=== PATIENT | female | born 1995 | race Caucasian/White ===

== ENCOUNTER 2020-02-23 08:05 | Emergency (ER) | payer SELFPAY ==
[2020-02-23 08:07] VITALS: BP 104/68; PULSE 117; RESP 18; TEMP 37; O2SAT 99; BMI 23.9
--- NOTE | 2020-02-23 08:21 | W.ED.URI ---
HPI - URI/Sore Throat General: Chief Complaint: Upper Respiratory Infection Stated Complaint: SORE THROAT / FEVER Time Seen by Provider: 02/23/20 08:21 Source: patient Mode of arrival: EMS Limitations: no limitations History of Present Illness: HPI Narrative: Patient presents with 3-day history of sore throat, nasal drainage.States she possibly could have been running a fever but had no thermometer at home has taken no medications this morning, and is afebrile at presentation. MD elicited complaint: sore throat and nasal congestion Onset (ago): day(s) Consistency: progressively worsening Severity: mild Description of mucous: green Able to tolerate fluids by mouth: Yes Exacerbating factors: nothing Relieving factors: nothing Context: sick contacts Associated symptoms: Reports no associated symptoms, fever(s), nasal congestion and sinus pain; Deny abdominal pain or chest pain Treatments prior to arrival: none Review of Systems General: Reports: 10 or more systems reviewed and unremarkable except in HPI and below Const: Reports: fever(s) ENMT: Reports: throat pain, nasal discharge, nasal congestion, post nasal drip and sinus pain Card: Denies: chest pain or palpitations Resp: Denies: dyspnea or productive cough GI: Denies: abdominal pain : Denies: flank pain or difficulty voiding Physical Exam Const: COMMON NORMALS: no acute distress, average body habitus and patient oriented x3 HENMT: COMMON NORMALS: normocephalic, atraumatic and Normal external nose present HEAD & SCALP: normocephalic and atraumatic FACE & SINUS: face symmetric, normal transillumination of sinuses and sinus tenderness NOSE: Normal external nose present, Normal nares present, Abnormal mucous membranes and turbinates present erythematous and Nasal discharge present clear MOUTH: Normal oral and palatal mucosa present THROAT: postnasal drainage and tonsils absent Eye: COMMON NORMALS: Equal, round and reactive pupils present GENERAL EYE: appearance normal, both eyes and all related structures PUPIL: Yes Equal, round and reactive pupils present Neck/C-Spine: COMMON NORMALS: full ROM and no lymphadenopathy GENERAL: Yes normal visual inspection Lymph: LYMPHATIC: no lymphadenopathy noted Chest: COMMONS NORMALS: normal inspection of the chest and normal palpation of entire chest wall Resp: COMMON NORMALS: normal respiratory effort, No retractions and No use of accessory muscles Cardio: COMMON NORMALS: regular rhythm, S1 normal heart sound present and S2 normal heart sound present RHYTHM: regular rhythm HEART SOUNDS: S1 normal heart sound present and S2 normal heart sound present GI: COMMON NORMALS: Normal to inspection, nondistended, normoactive bowel sounds present, Soft to palpation, non-tender, No hepatosplenomegaly present, no masses and no bruits PALPATION: Yes Soft to palpation and Yes No hepatosplenomegaly present Extremity: COMMON NORMALS: normal to inspection and full ROM Neuro: COMMON NORMALS: patient oriented x3 Skin: COMMON NORMALS: no rashes or lesions noted, no wounds and turgor normal GENERAL SKIN EXAM: no rashes or lesions noted and turgor normal Course Vital Signs: Vital signs: Vital Signs Temperature 98.6 F 02/23/20 08:07 Pulse Rate 117 H 02/23/20 08:07 Respiratory Rate 18 02/23/20 08:07 Blood Pressure 104/68 02/23/20 08:07 Pulse Oximetry 99 02/23/20 08:07 Discharge Plan Discharge Patient Disposition: Home, Self-Care Clinical Impression: Sinusitis Condition: Stable Prescriptions: New fluticasone propionate [Flonase Allergy Relief] 50 mcg/actuation spray,suspension 1 spray INTRANASAL DAILY Qty: 16 RF: 0 loratadine [Claritin] 10 mg tablet 10 mg PO DAILY Qty: 30 RF: 0 azithromycin 250 mg tablet See Rx Instructions .ROUTE .COMPLEX Qty: 6 RF: 0 Discharge Orders: Discharge Order (Routine); Ordered 02/23/20 Ordered By: Elaine Martinez Referrals: Sesar Woodard MD [Primary Care Provider] - 1-3 days Discharge Diet: Usual diet Discharge Activity: Resume usual activity Coding Level of Care Code ED Specification Writer for Smith Bragg
[2020-02-23 08:55] VITALS: BP 99/54; PULSE 128; RESP 18; O2SAT 100
[2020-02-23 09:42] LABS: Rapid Strep A Test Positive (Negative)
[2020-02-23 09:54] LABS: Influenza A by IFA Negative (Negative); Influenza B by IFA Negative (Negative)
== END 2020-02-23 08:57 | disposition home or self-care (01) ==
LOC: ER 08:40
PROVIDERS: Emergency Provider Nurse Practitioner Family; Family Provider Family Medicine; PCP Family Medicine
DX: J32.9 Chronic sinusitis, unspecified (principal)
CPT/HCPCS: 12345; 87804; 87880; 99282

== ENCOUNTER → 2020-07-29 12:13 | Outpatient (BNVA) | payer OTHER, SELFPAY | PROVIDERS: Family Provider Family Medicine; PCP Family Medicine; Visit Provider Nurse Practitioner Family | DX: Z20.828 Contact with and (suspected) exposure to other viral communicable diseases (principal) | CPT/HCPCS: 87635 ==

== ENCOUNTER 2020-07-31 15:42 | Emergency (ER) | payer SELFPAY ==
[2020-07-31 16:13] VITALS: BP 101/71; PULSE 95; RESP 14; TEMP 36.7; O2SAT 99; BMI 23.0
[2020-07-31 16:18] VITALS: BP 115/75; PULSE 80; RESP 16; O2SAT 98
[2020-07-31 16:51] VITALS: O2SAT 96
--- NOTE | 2020-07-31 17:21 | XRR_ITS ---
PROCEDURE INFORMATION: Exam: XR Chest, 1 View Exam date and time: 07/31/2020 5:28 PM Age: 25 years old Clinical indication: Shortness of breath; Additional info: SOB, cough, covid+ TECHNIQUE: Imaging protocol: XR of the chest Views: 1 view. COMPARISON: No relevant prior studies available. FINDINGS: Lungs: Unremarkable. No consolidation. Pleural space: Unremarkable. No pleural effusion. No pneumothorax. Heart/Mediastinum: Unremarkable. No cardiomegaly. Bones/joints: Unremarkable. XR/XR chest 1V portable [id number] IMPRESSION: No acute findings.
--- NOTE | 2020-07-31 17:23 | ECG_ITS ---
[facility] Test Date: 2020-07-31 Pat Name: Kimberly Abdalla Department: Room: Gender: Female Spot Checker: : 1995 Requested By: Adair Rivera I Order Number: [id number] Amaury MD: Chris Boateng M.D. Measurements Intervals [place] Rate: 75 P: 58 MI: 163 QRS: 64 QRSD: 79 T: 55 QT: 383 QTc: 430 Interpretive Statements SINUS RHYTHM WITH SINUS ARRHYTHMIA LOW QRS VOLTAGE IN PRECORDIAL LEADS [QRS DEFLECTION < 1.0 mV IN CHEST LEADS] SEPTAL MYOCARDIAL INFARCTION , PROBABLY OLD [40+ ms Q WAVE IN V1/V2] No previous ECG available for comparison Electronically Signed On 07-31-2020 18:37:37 DEFECT CUTTER by Chris Boateng M.D. [id number]
[2020-07-31 17:48] VITALS: BP 113/68; PULSE 74; RESP 16; O2SAT 98
--- NOTE | 2020-07-31 18:07 | W.ED.COVID ---
HPI - COVID General: Chief Complaint: COVID symptoms Stated Complaint: chest pain. covid + Time Seen by Provider: 07/31/20 16:36 Source: patient Mode of arrival: ambulatory Limitations: no limitations Triage information: No fever, cough or shortness of breath. Exposure to COVID + person last 14 days History of Present Illness: HPI Narrative: The patient is a 25year old female with no significant past medical history presents to the ED with complaints of chest pain of 5 days duration. She got tested on the same day the pain started and she tested positive for COVID 19. She has mild SOB. Chest pain is worse on leaning forward. MD complaint: known COVID positive Prior covid testing: yes, results known COVID 19 common symptoms: positive dyspnea; negative fever(s), chills, cough, non-productive cough, productive cough, fatigue, body aches, headache(s), loss of sense of smell and/or taste, throat pain, nasal congestion, nausea, vomiting or diarrhea COVID 19 other sytmptoms: positive chest pain; negative chest pressure, pleuritic pain, requiring oxygen, requiring more oxygen, respiratory distress, cyanosis, lethargy, confusion, new neurological complaints or other concerning symptoms Onset (ago): day(s) (5) Severity: mild Treatment prior to arrival: none COVID Results: SARS-CoV-2 RNA (RT-PCR) Detected (NOT DETECTED) A 07/29/20 12:13 07/29/20 Review of Systems General: Reports: 10 or more systems reviewed and unremarkable except in HPI and below Const: Denies: fever(s), chills, body aches or fatigue Eyes: Denies: change in vision or blurry vision ENMT: Denies: throat pain or nasal congestion Card: Reports: chest pain Resp: Reports: dyspnea; Denies: productive cough or non-productive cough GI: Denies: nausea, vomiting or diarrhea : Denies: flank pain, difficulty voiding, dysuria, urinary frequency, urinary urgency or urinary hesitancy Musc: Denies: neck pain, back pain or extremity swelling Skin/Breast: Denies: rash, pruritus or erythema Neuro: Denies: headache(s) or confusion Endo: Denies: polyuria, polydipsia or tired all the time PFS ED PFSH: Social History Smoking and tobacco status: current every day smoker cigarettes Packs smoked per day: 0.5 Alcohol intake: never Physical Exam Const: COMMON NORMALS: no acute distress, average body habitus, patient oriented x3, no limitations, healthy appearing, alert and well nourished Neck/C-Spine: COMMON NORMALS: no meningeal signs and no JVD Chest: COMMONS NORMALS: normal inspection of the chest CHEST: Yes tenderness Resp: COMMON NORMALS: normal respiratory effort, No retractions, No use of accessory muscles, clear to auscultation bilaterally and percussion normal AUSCULTATION: clear to auscultation bilaterally PERCUSSION: percussion normal Cardio: COMMON NORMALS: no JVD, regular rate, regular rhythm, S1 normal heart sound present, S2 normal heart sound present, No gallops present (Cardio), No clicks present (Cardio), No murmurs present (Cardio), No rub (Cardio) and Peripheral pulses 2+ throughout RATE: regular rate RHYTHM: regular rhythm HEART SOUNDS: S1 normal heart sound present and S2 normal heart sound present PERIPHERAL PULSES: Peripheral pulses 2+ throughout GI: COMMON NORMALS: Normal to inspection, nondistended, normoactive bowel sounds present, Soft to palpation, non-tender, No hepatosplenomegaly present, no masses and no bruits PALPATION: Yes Soft to palpation and Yes No hepatosplenomegaly present Extremity: COMMON NORMALS: normal to inspection, full ROM, capillary refill normal, no calf tenderness and no pedal edema Neuro: COMMON NORMALS: patient oriented x3 SENSORIUM/ORIENTATION: Yes alert MENINGEAL SIGNS: Yes no meningeal signs Skin: COMMON NORMALS: no rashes or lesions noted, no wounds, turgor normal, no jaundice, no petechiae and no mottling GENERAL SKIN EXAM: no rashes or lesions noted and turgor normal Course Reevaluation(s): Reevaluation #1: Discussed her lab and imaging findings with her. D-dimer negative, high-sensitivity troponin negative. Chest x-ray unremarkable. Since she is tender to palpation I believe she may be having some costochondritis and she is advised to take NSAIDs. She voiced understanding and is in agreement with the plan. Time: 18:58 Vital Signs: Vital signs: Vital Signs Temperature 98.0 F 12/18/20 16:13 Pulse Rate 85 07/31/20 19:13 Respiratory Rate 18 07/31/20 18:48 Blood Pressure 120/80 07/31/20 19:13 Pulse Oximetry 100 07/31/20 19:13 MDM - COVID MDM Narrative: Medical decision making narrative: 25-year-old female who recently tested positive for COVID-19 and has been having chest pain for several days. Evaluation in the ED is unremarkable for any acute cause for her chest pain including negative D-dimer negative high-sensitivity troponin. Symptoms are most likely due to costochondritis and she is discharged home with a prescription for NSAIDs. Medical Records: Attestation: I reviewed the patient's medical records. Lab Data: Attestation: I reviewed the patient's lab results. Labs: Lab Results 07/31/20 07/31/20 07/31/20 Range/Units 18:00 18:00 18:00 WBC 10.0 (4.0-10.0) 10^3/ uL RBC 5.06 (4.1-5.3) 10^6/u L Hgb 14.6 (11.5-15.3) g/dL Hct 44.7 (37.0-47.0) % MCV 88.3 (81-99) fL MCH 28.9 (28.0-34.0) pg MCHC 32.7 (30.0-36.0) g/dL RDW 13.2 (12.1-15.1) % Plt Count 257 (130-400) 10^3/c mm MPV 10.9 H (7.4-10.4) fL Neut % (Auto) 30.4 % Lymph % (Auto) 60.1 % [place] % (Auto) 5.5 % Eos % (Auto) 3.3 % Baso % (Auto) 0.5 % Neut # (Auto) 3.04 (1.8-7.7) 10^3/u L Lymph # (Auto) 6.0 H (0.8-4.8) 10^3/u L [place] # (Auto) 0.6 (0.2-0.9) 10^3/u L Eos # (Auto) 0.3 (0.0-0.8) 10^3/u L Baso # (Auto) 0.1 (0.0-0.1) 10^3/u L Nucleated RBC % (a uto) 0 % Nucleated RBCs # 0.0 /100WBC D-Dimer 0.31 (0-0.59) ug/mIFE U Sodium 138 (136-145) mmol/L Potassium 4.4 (3.5-5.1) mmol/L Chloride 104 (98-107) mmol/L Carbon Dioxide 26 (22-29) mmol/L Anion Gap 12.4 (5-19) BUN 11 (6-20) mg/dL Creatinine 0.5 (0.5-0.9) mg/dL GFR Calculation 148.0 H (90-130) mL/min Glucose 94 (65-115) mg/dL Calculated Osmolal ity 285 (285-295) mOsm/k g Calcium 9.7 (8.5-10.5) mg/dL Total Bilirubin 0.2 (0.15-1.2) mg/dL AST 16 (0-32) U/L ALT 21 (0-33) U/L Alkaline Phosphata se 93 (35-105) IU/L Creatine Kinase 90 (26-192) U/L Troponin T Baselin e (0-10) ng/L C-Reactive Protein 1.5 (0.0-4.9) mg/L Total Protein 7.0 (6.6-8.7) g/dL Albumin 4.3 (3.5-5.2) g/dL Globulin 2.7 (1.3-4.6) g/dL 12/18/20 Range/Units 18:00 WBC (4.0-10.0) 10^3/ uL RBC (4.1-5.3) 10^6/u L Hgb (11.5-15.3) g/dL Hct (37.0-47.0) % MCV (81-99) fL MCH (28.0-34.0) pg MCHC (30.0-36.0) g/dL RDW (12.1-15.1) % Plt Count (130-400) 10^3/c mm MPV (7.4-10.4) fL Neut % (Auto) % Lymph % (Auto) % [place] % (Auto) % Eos % (Auto) % Baso % (Auto) % Neut # (Auto) (1.8-7.7) 10^3/u L Lymph # (Auto) (0.8-4.8) 10^3/u L [place] # (Auto) (0.2-0.9) 10^3/u L Eos # (Auto) (0.0-0.8) 10^3/u L Baso # (Auto) (0.0-0.1) 10^3/u L Nucleated RBC % (a uto) % Nucleated RBCs # /100WBC D-Dimer (0-0.59) ug/mIFE U Sodium (136-145) mmol/L Potassium (3.5-5.1) mmol/L Chloride (98-107) mmol/L Carbon Dioxide (22-29) mmol/L Anion Gap (5-19) BUN (6-20) mg/dL Creatinine (0.5-0.9) mg/dL GFR Calculation (90-130) mL/min Glucose (65-115) mg/dL Calculated Osmolal ity (285-295) mOsm/k g Calcium (8.5-10.5) mg/dL Total Bilirubin (0.15-1.2) mg/dL AST (0-32) U/L ALT (0-33) U/L Alkaline Phosphata se (35-105) IU/L Creatine Kinase (26-192) U/L Troponin T Baselin e 6 (0-10) ng/L C-Reactive Protein (0.0-4.9) mg/L Total Protein (6.6-8.7) g/dL Albumin (3.5-5.2) g/dL Globulin (1.3-4.6) g/dL Imaging Data: CXR: Attestation: I personally reviewed and interpreted this imaging study as follows: Radiologist's impression: [address] [address] XRay Report Signed Patient: Kimberly Abdalla #: [id number] : 1995Acct#:[id number] Age/Sex: 25 / FADM Date: 07/31/20 Loc: ERRoom/Bed: Attending Dr: Ordering Provider/Ordering MD: Adair Rivera MD, [facility] Date of Service: 07/31/20 Procedure(s): XR chest 1V portable [id number] Accession Number(s): [id number] Report Number: [id number] PROCEDURE INFORMATION: Exam: XR Chest, 1 View Exam date and time: 07/31/2020 5:28 PM Age: 25 years old Clinical indication: Shortness of breath; Additional info: SOB, cough, covid+ TECHNIQUE: Imaging protocol: XR of the chest Views: 1 view. COMPARISON: No relevant prior studies available. FINDINGS: Lungs: Unremarkable. No consolidation. Pleural space: Unremarkable. No pleural effusion. No pneumothorax. Heart/Mediastinum: Unremarkable. No cardiomegaly. Bones/joints: Unremarkable. XR/XR chest 1V portable [id number] IMPRESSION: No acute findings. Dictated By:Carmelo Isabel Signed By:Carmelo IsabelSimacho Date/Time:07/31/201808 DD/ 07 EKG Data: EKG 1: Attestation: I personally reviewed and interpreted this EKG as follows: EKG interpretation date: 07/31/20 EKG interpretation time: 18:13 Prior EKG tracings: not available for review Interpretation: sinus rhythm with sinus arrhythmia. Heart rate [address] changes. Normal axis COVID Results: SARS-CoV-2 RNA (RT-PCR) Detected (NOT DETECTED) A 07/29/20 12:13 07/29/20 Monoclonal Antibody Treatments Inclusion/Exclusion Criteria weight >/= 40 kg and + direct Sars-Cov-2 test less than 7-10 days ago age not >/= 65, BMI not >/= 35, does not have diabetes, does not have CKD, not receiving immunosuppressive therapy, does not have immunosuppressive disease, not >/= 55 with hypertension, not >/= 55 with diabetes, not >/= 55 with COPD/lung disease, not 12-17y with BMI >/= 85th percentile, not 12-17y with heart disease, not 12-17y with sickle cell disease, not 12-17y with neurodevelopemental d/o, not 12-17y with asthma/RAD/lung disease and not 12-17y w/ 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 not requiring hospitalization, not requiring oxygen (if not chronically on oxygen) and no increase oxygen requirement (if chronically on oxygen) Patient education fact sheet not given, did not discuss EUA/unapproved drug, did not discuss alternatives, did not discuss risks and benefits, no opportunity for questions and patient does not consent (DO NOT GIVE) Plan for treatment Does not meet criteria (DO NOT GIVE) Discharge Plan Discharge Patient Disposition: Home Clinical Impression: Acute costochondritis, COVID-19 Condition: Stable Prescriptions: New ibuprofen 800 mg tablet 800 mg PO Q8H PRN (Reason: pain) Qty: 30 RF: 0 Discharge Orders: Discharge ED (Routine); Ordered 07/31/20 Ordered By: Adair Rivera Referrals: Sesar Woodard MD [Primary Care Provider] - 1-3 days Discharge Diet: Usual diet Discharge Activity: Resume usual activity Patient Instructions: Costochondritis (ED), Viral Syndrome (ED) Activity Restrictions/Additional Instructions: Return for any new or worsening symptoms. Take the ibuprofen as needed for pain. Follow-up with your primary care provider within 3 days. You need to self isolate for at least 10 days and at least 2 days without fever. Coding Level of Care Code ED Metal Fabricator Welder for Smith Fwd Exam Comprehensive
[2020-07-31 18:12] LABS: Basophils # 0.1 10^3/uL (0.0-0.1); Basophils % 0.5 %; Eosinophils # 0.3 10^3/uL (0.0-0.8); Eosinophils % 3.3 %; Hematocrit 44.7 % (37.0-47.0); Hemoglobin 14.6 g/dL (11.5-15.3); Lymphocytes % 60.1 %; Mean Corpuscular HGB Conc 32.7 g/dL (30.0-36.0); Mean Corpuscular Hemoglobin 28.9 pg (28.0-34.0); Mean Corpuscular Volume 88.3 fL (81-99); Mean Platelet Volume 10.9 fL (7.4-10.4); Monocytes # 0.6 10^3/uL (0.2-0.9); Monocytes % 5.5 %; Neutrophils # 3.04 10^3/uL (1.8-7.7); Neutrophils % 30.4 %; Nucleated Red Blood Cells % 0 %; Platelet Count 257 10^3/cmm (130-400); Red Blood Count 5.06 10^6/uL (4.1-5.3); Red Cell Distribution Width 13.2 % (12.1-15.1)
[2020-07-31 18:29] LABS: D Dimer 0.31 ug/mIFEU (0-0.59)
[2020-07-31 18:35] LABS: Alanine Aminotransferase 21 U/L (0-33); Albumin Level 4.3 g/dL (3.5-5.2); Alkaline Phosphatase 93 IU/L (35-105); Blood Urea Nitrogen 11 mg/dL (6-20); C Reactive Protein 1.5 mg/L (0.0-4.9); Calcium 9.7 mg/dL (8.5-10.5); Carbon Dioxide 26 mmol/L (22-29); Chloride 104 mmol/L (98-107); Creatine Phosphokinase 90 U/L (26-192); Globulin 2.7 g/dL (1.3-4.6); Glucose 94 mg/dL (65-115); Osmolality Calculated 285 mOsm/kg (285-295); Sodium 138 mmol/L (136-145); Total Bilirubin 0.2 mg/dL (0.15-1.2)
[2020-07-31 18:36] LABS: Anion Gap 12.4 (5-19); Aspartate Amino Transferase 16 U/L (0-32); Potassium 4.4 mmol/L (3.5-5.1); Troponin(5th) Baseline 6 ng/L (0-10)
[2020-07-31 18:48] VITALS: BP 120/80; PULSE 75; RESP 18; O2SAT 99
[2020-07-31 18:50] LABS: Slide Review Slide Review Perform
[2020-07-31] MEDS: ketorolac 30 mg/mL INJ IVP (19:08)
[2020-07-31 19:13] VITALS: BP 120/80; PULSE 85; O2SAT 100
== END 2020-07-31 19:15 | disposition home or self-care (01) ==
PROVIDERS: Emergency Provider Family Medicine; PCP Family Medicine
DX: U07.1 COVID-19 (principal); M94.0 Chondrocostal junction syndrome [Tietze]; F17.210 Nicotine dependence, cigarettes, uncomplicated
CPT/HCPCS: 12345; 71045; 80053; 82550; 84484; 85025; 85378; 86140; 93005; 96374; 99283; J1885

== ENCOUNTER 2020-09-28 16:55 | Emergency (ER) | payer SELFPAY ==
[2020-09-28 17:01] VITALS: BP 105/70; PULSE 91; RESP 16; TEMP 36.5; BMI 23.0
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
[2020-09-28 17:53] LABS: Basophils # 0.1 10^3/uL (0.0-0.1); Basophils % 0.6 %; Eosinophils # 0.2 10^3/uL (0.0-0.8); Eosinophils % 1.8 %; Hematocrit 44.8 % (37.0-47.0); Hemoglobin 14.6 g/dL (11.5-15.3); Lymphocytes # 4.8 10^3/uL (0.8-4.8); Lymphocytes % 39.7 %; Mean Corpuscular HGB Conc 32.6 g/dL (30.0-36.0); Mean Corpuscular Volume 88.9 fL (81-99); Mean Platelet Volume 11.1 fL (7.4-10.4); Monocytes # 0.6 10^3/uL (0.2-0.9); Monocytes % 5.3 %; Neutrophils % 51.8 %; Nucleated Red Blood Cells % 0 %; Platelet Count 301 10^3/cmm (130-400); Red Blood Count 5.04 10^6/uL (4.1-5.3); Red Cell Distribution Width 14.1 % (12.1-15.1)
[2020-09-28 17:56] LABS: HCG, Serum Qual Negative (Negative)
[2020-09-28 18:06] LABS: Alanine Aminotransferase 27 U/L (0-33); Albumin Level 4.4 g/dL (3.5-5.2); Alkaline Phosphatase 86 IU/L (35-105); Anion Gap 13.8 (5-19); Aspartate Amino Transferase 25 U/L (0-32); Blood Urea Nitrogen 14 mg/dL (6-20); Carbon Dioxide 24 mmol/L (22-29); Chloride 104 mmol/L (98-107); Creatinine Clr Calc Pharmacy 91.7591; Glucose 123 mg/dL (65-115); Osmolality Calculated 288 mOsm/kg (285-295); Potassium 3.8 mmol/L (3.5-5.1); Sodium 138 mmol/L (136-145); Total Bilirubin 0.2 mg/dL (0.15-1.2); Total Protein 7.4 g/dL (6.6-8.7)
[2020-09-28 18:08] LABS: Alcohol Level < 10 mg/dL (0-10)
[2020-09-28] MEDS: ondansetron 2 mg/ML SDV 2 mL 4 MG IVP (18:31)
[2020-09-28 18:40] VITALS: RESP 18; O2SAT 100
[2020-09-28] MEDS: morphine 4 mg/mL SDV 1 mL IVP (18:40)
[2020-09-28 19:07] LABS: Add Urine Microscopic? YES; Bilirubin Urine Neg (Negative); Blood Urine 2+ (Negative); Glucose Urine UA Norm (Normal); Ketones Urine Negative (Negative); Leukocyte Esterase Urine Negative (Negative); Nitrate Urine Negative (Negative); Protein Urine Neg (Negative); Specific Gravity, Urine 1.025 (1.005-1.030); Urine Appearance Clear (CLEAR); Urine Color Yellow (Yellow); Urobilinogen Urine Norm (Negative); pH Urine 6 (5-7)
[2020-09-28 19:15] LABS: Amphetamines Screen Urine Positive (Negative); Barbiturates Screen Urine Negative (Negative); Benzodiazepines Screen Urine Negative (Negative); Cocaine Screen Urine Negative (Negative); Mucus Urine 3+ /hpf; Opiate Screen Urine Negative (Negative); PCP Screen Urine Negative (Negative); THC Screen Urine Negative (Negative)
[2020-09-28 19:17] LABS: Add Urine Culture? No; Bacteria Urine 1+ /hpf; RBC Urine 0-4 /hpf (0-2); Squamous Epithelial Cell Urine 0-4 /hpf (0-5); WBC Urine 0-4 /hpf (0-5)
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
[2020-09-28 20:28] VITALS: BP 105/70; PULSE 97; RESP 18; O2SAT 100
--- NOTE | 2020-09-29 11:52 | DCPLANNER ---
manager utilization review received message to schedule appointment with ENT. manager utilization review emailed Wilfredo. They will reviewed and contact patient with appointment information.
--- NOTE | 2020-10-12 15:39 | DCPLANNER ---
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 Email stated that clinic has made multiple attempts to reach patient, unable to reach patient. A letter was sent to patient stating that if patient wanted a follow up appointment, to call the clinic and an appointment would be scheduled. Original Note: bowling alley manager sent an email to both Diana and Norma at [facility] General Surgery to confirm if an appointment had been scheduled for patient.
== END 2020-09-28 20:10 | disposition home or self-care (01) ==
PROVIDERS: Emergency Provider Family Medicine; PCP Family Medicine
DX: S20.219A Contusion of unspecified front wall of thorax, initial encounter (principal); S02.2XXA Fracture of nasal bones, initial encounter for closed fracture; F17.210 Nicotine dependence, cigarettes, uncomplicated; V89.2XXA Person injured in unspecified motor-vehicle accident, traffic, initial encounter
CPT/HCPCS: 36415; 70450; 71250; 72125; 74176; 80053; 80306; 80307; 81001; 84703; 85025; 86850; 86900; 96374; 96375; 99283; J2270; J2405

== ENCOUNTER 2020-12-01 11:05 | Emergency (ER) | payer SELFPAY ==
[2020-12-01 11:06] VITALS: BP 107/75; PULSE 88; RESP 17; TEMP 36.3; O2SAT 97; BMI 23.9
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
[2020-12-01 12:04] VITALS: BP 112/84; PULSE 104; RESP 16; O2SAT 98
[2020-12-01] MEDS: ketorolac 60 mg/2 mL INJ IM (12:07)
[2020-12-01] MEDS: clindamycin 150 mg Capsule 300 MG PO (12:08)
== END 2020-12-01 12:33 | disposition home or self-care (01) ==
PROVIDERS: Emergency Provider Physician Assistant; PCP Family Medicine
DX: L03.116 Cellulitis of left lower limb (principal); M79.671 Pain in right foot; F17.210 Nicotine dependence, cigarettes, uncomplicated
CPT/HCPCS: 73630; 96372; 99283; J1885

== ENCOUNTER 2021-05-07 09:21 | Outpatient (CLI) | payer SELFPAY ==
--- NOTE | 2021-05-07 09:34 | XR_ITS ---
WS: [id number] Lateral views of cervical spine in the flexion, extension and neutral positions. 05/07/2021 Clinical Data: CERVICAIGIA Comparison: Cervical spine lateral, 08/03/2009. Findings: The disc heights are normal. There is no prevertebral swelling. On flexion and extension there is no limitation of motion or subluxation. XR/XR cervical spine fl/ex [id number] Impression: Negative for limitation of motion or subluxation on flexion or extension.
== END 2021-05-07 09:22 | disposition home or self-care (01) ==
PROVIDERS: PCP Family Medicine; Visit Provider Nurse Practitioner
DX: M54.2 Cervicalgia (principal)
CPT/HCPCS: 72040

== ENCOUNTER 2022-05-22 16:06 | Emergency (ER) | payer BC, MEDICAID, SELFPAY ==
[2022-05-22 16:15] VITALS: BP 103/62; PULSE 110; RESP 18; TEMP 36.7; O2SAT 98; BMI 25.3
--- NOTE | 2022-05-22 17:04 | PC.NURSE ---
pt reports she thinks she is , had 2 positive tests 2 days ago. c/o having vaginal bleeding, a mixture of bright and dark red. bleeding began last night, has gone though 1-2 pads since then. hx of tubal in December of this year. reports chest pain, back pain, and pain to right leg that began on Monday05/10/22. denies receiving rhogam injection with previous pregnancies. LMP began 05/10/22. denies vomiting or urinary symptoms.
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
--- NOTE | 2022-05-22 17:18 | W.ED.GENADLT ---
Documented by User: Sp Shetty DO 05/22/22 17:43 HPI - General Adult General: Chief complaint: Vaginal Bleeding Stated complaint: Thinks she might be /bleeding Time Seen by Provider: 05/22/22 17:00 History of Present Illness: Patient is a 27-year-old female presenting today with vaginal bleeding. P she notes that she had a positive test on Monday. Started to have vaginal bleeding today. Has a history of tubal earlier this year. Notes that she has never received RhoGAM shots. But does not know what her blood type is. She notes bleeding is consistent with associated cramping. No passage of large clots. No dysuria or polyuria. No nausea or vomiting. No diarrhea. No confirmatory ultrasound at this point. Review of Systems General: Reports: 10 or more systems reviewed and unremarkable except in HPI and below PFSH ED PFSH: Social History Smoking and tobacco status: current every day smoker cigarettes Packs smoked per day: 0.5 Alcohol intake: never Female Reproductive History: Date of last menstrual period: 05/10/22 Physical Exam Const: COMMON NORMALS: no acute distress, patient oriented x3 and alert GENERAL APPEARANCE: cooperative ORIENTATION/CONSCIOUSNESS: Yes awake, Yes oriented to person, Yes oriented to place and Yes oriented to time HENMT: COMMON NORMALS: normocephalic, atraumatic, external ears normal, Normal external nose present and moist oral mucous membranes HEAD & SCALP: normal to inspection, normocephalic and atraumatic NOSE: Normal external nose present GENERAL EAR: hearing grossly impaired EXTERNAL EAR: Yes external ears normal Eye: COMMON NORMALS: Equal, round and reactive pupils present, EOMs intact bilaterally, conjunctivae normal and no scleral icterus GENERAL EYE: appearance normal, both eyes and all related structures EYELID: eyelids normal CONJUNCTIVA: Yes conjunctivae normal SCLERA: sclerae normal PUPIL: Yes Equal, round and reactive pupils present Neck/C-Spine: COMMON NORMALS: full ROM, supple and no JVD GENERAL: Yes normal visual inspection Lymph: LYMPHATIC: no lymphadenopathy noted and no lymphedema noted Chest: COMMONS NORMALS: normal inspection of the chest Resp: COMMON NORMALS: normal respiratory effort, No retractions and No use of accessory muscles Cardio: COMMON NORMALS: no JVD, regular rate and regular rhythm RATE: regular rate RHYTHM: regular rhythm GI: COMMON NORMALS: Normal to inspection, nondistended, normoactive bowel sounds present : COMMON NORMALS: Yes no CVA tenderness BLADDER/KIDNEY EXAM: Yes no CVA tenderness Back/Pelvis: COMMON NORMALS: no CVA tenderness and thoracic and lumbar spine normal to inspection Extremity: COMMON NORMALS: normal to inspection, full ROM and capillary refill normal GENERAL: Yes normal exam except as noted Neuro: COMMON NORMALS: patient oriented x3, CN's II-XII intact bilaterally, moves all extremities, no focal motor deficits, no sensory deficits noted and gait normal SENSORIUM/ORIENTATION: Yes alert, Yes oriented to person, Yes oriented to place and Yes oriented to time Psych: COMMON NORMALS: mental status grossly normal, Normal thought process present, cooperative and normal affect THOUGHT PROCESS: Normal thought process present Skin: COMMON NORMALS: no rashes or lesions noted and no wounds GENERAL SKIN EXAM: no rashes or lesions noted Course Vital Signs: Vital signs: Vital Signs Temperature 98.0 F 05/22/22 16:15 Pulse Rate 93 05/22/22 18:30 Respiratory Rate 18 05/22/22 16:15 Blood Pressure 107/75 05/22/22 18:30 Pulse Oximetry 99 05/22/22 18:30 Oxygen Delivery Me thod 05/22/22 16:15 [facility] - General Adult Medical Decision Making 27-year-old female presenting today with vaginal bleeding. Patient signed out pending labs and ultrasound results. Lab Data : 05/22/22 16:17 05/22/22 16:17 Radiology Impressions Obstetrics Ultrasound 05/22/22 17:11 IMPRESSION: Normal duplex of the ovaries. No evidence of ovarian torsion. IMPRESSION: 1. No evidence of intrauterine gestational sac. 2. Trace amount of cul-de-sac free fluid. 3. Heterogeneous mass adjacent to RIGHT ovary. See discussion above. Findings may represent right adnexal region ectopic however no definite ectopic gestational sac or cardiac activity are identified. Continued correlation with quantitative beta HCG and follow-up should be obtained if there is no intervention at this time provided initial quantitative HCG level is quite low. Sonographic follow-up may also be considered. 4. No evidence of ovarian torsion. ADDENDUM: 05/22/[address] Leung was notified by phone at 8:31 p.m. Eastern time. Laboratory Results WBC 11.2 10^3/uL (4.0-10.0) H 05/22/22 16:17 RBC 4.54 10^6/uL (4.1-5.3) 05/22/22 16:17 Hgb 13.7 g/dL (11.5-15.3) 05/22/22 16:17 Hct 41.5 % (37.0-47.0) 05/22/22 16:17 MCV 91.4 fl (81-99) 05/22/22 16:17 MCH 30.2 pg (28.0-34.0) 05/22/22 16:17 MCHC 33.0 g/dL (30.0-36.0) 05/22/22 16:17 RDW 15.0 % (12.1-15.1) 05/22/22 16:17 Plt Count 278 10^3/cmm (130-400) 05/22/22 16:17 MPV 10.8 fL (7.4-10.4) H 05/22/22 16:17 Neut % (Auto) 53.0 % 05/22/22 16:17 Lymph % (Auto) 36.9 % 05/22/22 16:17 Gaston % (Auto) 6.2 % 05/22/22 16:17 Eos % (Auto) 3.0 % 05/22/22 16:17 Baso % (Auto) 0.6 % 05/22/22 16:17 Neut # (Auto) 5.92 10^3/uL (1.8-7.7) 05/22/22 16:17 Lymph # (Auto) 4.1 10^3/uL (0.8-4.8) 05/22/22 16:17 Gaston # (Auto) 0.7 10^3/uL (0.2-0.9) 05/22/22 16:17 Eos # (Auto) 0.3 10^3/uL (0.0-0.8) 05/22/22 16:17 Baso # (Auto) 0.1 10^3/uL (0.0-0.1) 05/22/22 16:17 Nucleated RBC % (auto) 0 % 05/22/22 16:17 Nucleated RBCs # 0.0 /100WBC 05/22/22 16:17 Sodium 138 mmol/L (136-145) 05/22/22 16:17 Potassium 3.6 mmol/L (3.5-5.1) 05/22/22 16:17 Chloride 103 mmol/L (98-107) 05/22/22 16:17 Carbon Dioxide 25 mmol/L (22-29) 05/22/22 16:17 Anion Gap 13.6 (5-19) 05/22/22 16:17 BUN 12 mg/dL (6-20) 05/22/22 16:17 Creatinine 0.5 mg/dL (0.5-0.9) 05/22/22 16:17 GFR Calculation 145.9 mL/min (90-130) H 05/22/22 16:17 Glucose 115 mg/dL (65-115) 05/22/22 16:17 Calculated Osmolality 287 mOsm/kg (285-295) 05/22/22 16:17 Calcium 8.8 mg/dL (8.5-10.5) 05/22/22 16:17 Total Bilirubin 0.2 mg/dL (0.15-1.2) 05/22/22 16:17 AST 13 U/L (0-32) 05/22/22 16:17 ALT 18 U/L (0-33) 05/22/22 16:17 Alkaline Phosphatase 96 U/L (35-105) 05/22/22 16:17 Total Protein 6.6 g/dL (6.6-8.7) 05/22/22 16:17 Albumin 3.8 g/dL (3.5-5.2) 05/22/22 16:17 Globulin 2.8 g/dL (1.3-4.6) 05/22/22 16:17 Ser , Semi-Qnt 59.66 mIU/mL 05/22/22 16:17 Ser , Semi-Qnt Cancelled 05/22/22 16:17 Blood Type O Positive 05/22/22 16:17 Rho(D) Type Positive 05/22/22 16:17 Discharge Plan Discharge Patient Disposition: Home Clinical Impression: Vaginal bleeding during Condition: Stable Prescriptions: New hydrocodone-acetaminophen 5-325 mg tablet 1 tab PO Q8H PRN (Reason: pain) Qty: 7 0RF Discontinued Howells 5-325 mg tablet 1 tab PO Q8H PRN (Reason: pain) Qty: 12 0RF No Action mupirocin 2 % ointment 1 applic topical DAILY Qty: 15 0RF ibuprofen 800 mg tablet 800 mg PO Q8H PRN (Reason: pain) Qty: 20 0RF ibuprofen 800 mg tablet 800 mg PO Q8H PRN (Reason: pain) Qty: 30 0RF Discharge Orders: Discharge ED (Routine); Ordered 05/22/22 Ordered By: Chilo Leung Referrals: Ck Diamond MD [Physician] - 1-3 days Sesar Woodard MD [Primary Care Provider] - Patient Instructions: Threatened Miscarriage (ED), Opioid Safety, Pain Management Activity Restrictions/Additional Instructions: As explained to you in the ER, you need to follow-up in 48 hours with obstetrics for a repeat serum test, and a repeat ultrasound. Call the women's health clinic in the morning to set this up. Let them know you were seen in the ER. A disc of your images has been printed for you in case you wish to follow-up in your hometown. Should your vaginal bleeding increase, soaking a pad an hour for more than 3 hours in a row, or you get a fever greater than 100, or vomiting liquids and medications, return to the emergency department. Coding Level of Care Code ED Sanitary Landfill Supervisor for Chg Fwd Exam Comprehensive Documented by User: Chilo Leung, 05/22/22 20:02 HPI - General Adult General: Chief complaint: Vaginal Bleeding Stated complaint: Thinks she might be /bleeding Time Seen by Provider: 05/22/22 17:00 PFSH ED PFSH: Social History Smoking and tobacco status: current every day smoker cigarettes Packs smoked per day: 0.5 Alcohol intake: never Course Vital Signs: Vital signs: Vital Signs Temperature 98.0 F 05/22/22 16:15 Pulse Rate 93 05/22/22 18:30 Respiratory Rate 18 05/22/22 16:15 Blood Pressure 107/75 05/22/22 18:30 Pulse Oximetry 99 05/22/22 18:30 Oxygen Delivery Me thod 05/22/22 16:15 MDM - General Adult Medical Decision Making 27-year-old female presenting today with vaginal bleeding. Patient signed out pending labs and ultrasound results. 27-year-old patient checked out to me by the previous physician at shift change. She is awake alert and talking. Vitals are normal. Blood pressure 107/75, heart rate 93, respirations 18 temperature 98.0. Her hemoglobin is 13.7. White blood cell count is 11.2. BMP is not remarkable. Serum quantitative hCG is 59. This is a very early likely given her history. Pelvic ultrasound reveals no evidence of an IUP. There is a trace amount of cul-de-sac free fluid. There is a mass adjacent to the right ovary which could represent an ectopic, although this is very early. I spoke with obstetrics. Their recommendations are repeat serum quant in 48 hours. Repeat pelvic ultrasound in 48 hours. Further treatment will be guided by these results. Counseled patient extensively. She expresses understanding and will comply. She does live in [place], and so she may follow-up there. A disc of her images is printed for her in case she decides to do that. Lab Data : 05/22/22 16:17 05/22/22 16:17 Radiology Impressions Obstetrics Ultrasound 05/22/22 17:11 IMPRESSION: Normal duplex of the ovaries. No evidence of ovarian torsion. IMPRESSION: 1. No evidence of intrauterine gestational sac. 2. Trace amount of cul-de-sac free fluid. 3. Heterogeneous mass adjacent to RIGHT ovary. See discussion above. Findings may represent right adnexal region ectopic however no definite ectopic gestational sac or cardiac activity are identified. Continued correlation with quantitative beta HCG and follow-up should be obtained if there is no intervention at this time provided initial quantitative HCG level is quite low. Sonographic follow-up may also be considered. 4. No evidence of ovarian torsion. ADDENDUM: 05/22/[address] Leung was notified by phone at 8:31 p.m. Eastern time. Laboratory Results WBC 11.2 10^3/uL (4.0-10.0) H 05/22/22 16:17 RBC 4.54 10^6/uL (4.1-5.3) 05/22/22 16:17 Hgb 13.7 g/dL (11.5-15.3) 05/22/22 16:17 Hct 41.5 % (37.0-47.0) 05/22/22 16:17 MCV 91.4 fl (81-99) 05/22/22 16:17 MCH 30.2 pg (28.0-34.0) 05/22/22 16:17 MCHC 33.0 g/dL (30.0-36.0) 05/22/22 16:17 RDW 15.0 % (12.1-15.1) 05/22/22 16:17 Plt Count 278 10^3/cmm (130-400) 05/22/22 16:17 MPV 10.8 fL (7.4-10.4) H 05/22/22 16:17 Neut % (Auto) 53.0 % 05/22/22 16:17 Lymph % (Auto) 36.9 % 05/22/22 16:17 Gaston % (Auto) 6.2 % 05/22/22 16:17 Eos % (Auto) 3.0 % 05/22/22 16:17 Baso % (Auto) 0.6 % 05/22/22 16:17 Neut # (Auto) 5.92 10^3/uL (1.8-7.7) 05/22/22 16:17 Lymph # (Auto) 4.1 10^3/uL (0.8-4.8) 05/22/22 16:17 Gaston # (Auto) 0.7 10^3/uL (0.2-0.9) 05/22/22 16:17 Eos # (Auto) 0.3 10^3/uL (0.0-0.8) 05/22/22 16:17 Baso # (Auto) 0.1 10^3/uL (0.0-0.1) 05/22/22 16:17 Nucleated RBC % (auto) 0 % 05/22/22 16:17 Nucleated RBCs # 0.0 /100WBC 05/22/22 16:17 Sodium 138 mmol/L (136-145) 05/22/22 16:17 Potassium 3.6 mmol/L (3.5-5.1) 05/22/22 16:17 Chloride 103 mmol/L (98-107) 05/22/22 16:17 Carbon Dioxide 25 mmol/L (22-29) 05/22/22 16:17 Anion Gap 13.6 (5-19) 05/22/22 16:17 BUN 12 mg/dL (6-20) 05/22/22 16:17 Creatinine 0.5 mg/dL (0.5-0.9) 05/22/22 16:17 GFR Calculation 145.9 mL/min (90-130) H 05/22/22 16:17 Glucose 115 mg/dL (65-115) 05/22/22 16:17 Calculated Osmolality 287 mOsm/kg (285-295) 05/22/22 16:17 Calcium 8.8 mg/dL (8.5-10.5) 05/22/22 16:17 Total Bilirubin 0.2 mg/dL (0.15-1.2) 05/22/22 16:17 AST 13 U/L (0-32) 05/22/22 16:17 ALT 18 U/L (0-33) 05/22/22 16:17 Alkaline Phosphatase 96 U/L (35-105) 05/22/22 16:17 Total Protein 6.6 g/dL (6.6-8.7) 05/22/22 16:17 Albumin 3.8 g/dL (3.5-5.2) 05/22/22 16:17 Globulin 2.8 g/dL (1.3-4.6) 05/22/22 16:17 Ser , Semi-Qnt 59.66 mIU/mL 05/22/22 16:17 Ser , Semi-Qnt Cancelled 05/22/22 16:17 Blood Type O Positive 05/22/22 16:17 Rho(D) Type Positive 05/22/22 16:17 Discharge Plan Discharge Patient Disposition: Home Clinical Impression: Vaginal bleeding during Condition: Stable Prescriptions: New hydrocodone-acetaminophen 5-325 mg tablet 1 tab PO Q8H PRN (Reason: pain) Qty: 7 0RF Discontinued Howells 5-325 mg tablet 1 tab PO Q8H PRN (Reason: pain) Qty: 12 0RF No Action mupirocin 2 % ointment 1 applic topical DAILY Qty: 15 0RF ibuprofen 800 mg tablet 800 mg PO Q8H PRN (Reason: pain) Qty: 20 0RF ibuprofen 800 mg tablet 800 mg PO Q8H PRN (Reason: pain) Qty: 30 0RF Discharge Orders: Discharge ED (Routine); Ordered 05/22/22 Ordered By: Chilo Leung Referrals: Ck Diamond MD [Physician] - 1-3 days Sesar Woodard MD [Primary Care Provider] - Patient Instructions: Threatened Miscarriage (ED), Opioid Safety, Pain Management Activity Restrictions/Additional Instructions: As explained to you in the ER, you need to follow-up in 48 hours with obstetrics for a repeat serum test, and a repeat ultrasound. Call the women's health clinic in the morning to set this up. Let them know you were seen in the ER. A disc of your images has been printed for you in case you wish to follow-up in your hometown. Should your vaginal bleeding increase, soaking a pad an hour for more than 3 hours in a row, or you get a fever greater than 100, or vomiting liquids and medications, return to the emergency department. Coding Level of Care Code ED Sanitary Landfill Supervisor for [place] Fwd Exam Comprehensive
[2022-05-22 17:30] VITALS: BP 115/77; PULSE 101; O2SAT 90
[2022-05-22 17:30] LABS: Basophils # 0.1 10^3/uL (0.0-0.1); Basophils % 0.6 %; Eosinophils # 0.3 10^3/uL (0.0-0.8); Hematocrit 41.5 % (37.0-47.0); Hemoglobin 13.7 g/dL (11.5-15.3); Lymphocytes # 4.1 10^3/uL (0.8-4.8); Lymphocytes % 36.9 %; Mean Corpuscular Hemoglobin 30.2 pg (28.0-34.0); Mean Corpuscular Volume 91.4 fl (81-99); Mean Platelet Volume 10.8 fL (7.4-10.4); Monocytes # 0.7 10^3/uL (0.2-0.9); Monocytes % 6.2 %; Neutrophils # 5.92 10^3/uL (1.8-7.7); Nucleated Red Blood Cells % 0 %; Platelet Count 278 10^3/cmm (130-400); Red Blood Count 4.54 10^6/uL (4.1-5.3); White Blood Count 11.2 10^3/uL (4.0-10.0)
[2022-05-22 17:44] LABS: HCG Quantitative 59.66 mIU/mL
--- NOTE | 2022-05-22 17:46 | PC.NURSE ---
lung sounds clear bilat, bowel sounds present. skin pink/warm/dry.
[2022-05-22 17:55] LABS: Alanine Aminotransferase 18 U/L (0-33); Albumin Level 3.8 g/dL (3.5-5.2); Alkaline Phosphatase 96 U/L (35-105); Anion Gap 13.6 (5-19); Aspartate Amino Transferase 13 U/L (0-32); Blood Urea Nitrogen 12 mg/dL (6-20); Calcium 8.8 mg/dL (8.5-10.5); Carbon Dioxide 25 mmol/L (22-29); Chloride 103 mmol/L (98-107); Creatinine Clr Calc Pharmacy 150.3981; Globulin 2.8 g/dL (1.3-4.6); Glomerular Filtration Rate 145.9 mL/min (90-130); Glucose 115 mg/dL (65-115); Osmolality Calculated 287 mOsm/kg (285-295); Potassium 3.6 mmol/L (3.5-5.1); Sodium 138 mmol/L (136-145); Total Bilirubin 0.2 mg/dL (0.15-1.2); Total Protein 6.6 g/dL (6.6-8.7)
[2022-05-22 18:03] VITALS: BP 91/72; PULSE 109; O2SAT 99
[2022-05-22 18:30] VITALS: BP 107/75; PULSE 93; O2SAT 99
--- NOTE | 2022-05-22 18:58 | PC.NURSE ---
report given to JESSICA Cruz
[2022-05-22] MEDS: sodium chloride 0.9% 1,000 ML 999 ML IV (19:21)
== END 2022-05-22 20:33 | disposition home or self-care (01) ==
PROVIDERS: Emergency Medicine; Emergency Provider Emergency Medicine; PCP Family Medicine
DX: O46.90 Antepartum hemorrhage, unspecified, unspecified trimester (principal); Z3A.00 Weeks of gestation of pregnancy not specified
CPT/HCPCS: 76801; 76817; 80053; 84702; 85025; 86900; 96360; 99285; J7030

== ENCOUNTER 2022-05-24 17:01 | Outpatient (CLI) | payer BC, MEDICAID, SELFPAY ==
[2022-05-24 18:08] LABS: HCG Quantitative 50.26 mIU/mL
== END 2022-05-24 17:02 | disposition home or self-care (01) ==
LOC: RAD CLINIC 17:01
PROVIDERS: PCP Family Medicine; Visit Provider Obstetrics & Gynecology
DX: O46.90 Antepartum hemorrhage, unspecified, unspecified trimester (principal)
CPT/HCPCS: 76817; 84702

== ENCOUNTER 2022-05-26 10:23 | Outpatient (CLI) | payer BC, MEDICAID, SELFPAY ==
[2022-05-26 11:21] LABS: HCG Quantitative 11.91 mIU/mL
== END 2022-05-26 10:24 | disposition home or self-care (01) ==
LOC: LAB 10:26
PROVIDERS: PCP Family Medicine; Visit Provider Obstetrics & Gynecology
DX: O46.90 Antepartum hemorrhage, unspecified, unspecified trimester (principal)
CPT/HCPCS: 36415; 84702

== ENCOUNTER 2022-06-01 16:40 | Emergency (ER) | payer BC, MEDICAID, SELFPAY ==
[2022-06-01 16:43] VITALS: BP 120/56; PULSE 111; RESP 14; TEMP 36.7; O2SAT 99; BMI 25.3
--- NOTE | 2022-06-01 17:20 | USR_ITS ---
PROCEDURE INFORMATION: Exam: US Duplex Artery or Vein of the Abdominal and/or Reproductive Organs, Limited Ovaries Exam date and time: 06/01/2022 5:40 PM Age: 27 years old Clinical indication: Pelvic pain; Additional info: Pain and recent HX of complex right ovarian mass with +hcg TECHNIQUE: Imaging protocol: Real-time duplex ultrasound scan of the arterial or venous flow with her scale, color Doppler flow and spectral waveform analysis with image documentation. Limited duplex exam focused on the ovaries. Duplex exam was performed to evaluate for torsion and other vascular conditions. COMPARISON: US OB <=14 wk fetus w transvag 05/22/2022 6:23 PM FINDINGS: Right ovary/adnexa: Normal duplex of the ovary. Normal Doppler waveforms and color flow. No evidence of ovarian torsion. Left ovary/adnexa: Normal duplex of the ovary. Normal Doppler waveforms and color flow. No evidence of ovarian torsion. PROCEDURE INFORMATION: Exam: US Pelvis, Transvaginal Exam date and time: 06/01/2022 5:40 PM Age: 27 years old Clinical indication: Pelvic pain; Additional info: Pain and recent HX of complex right ovarian mass with +hcg TECHNIQUE: Imaging protocol: Real-time transvaginal pelvic ultrasound with image documentation. Transvaginal imaging was used for better evaluation of the endometrium, adnexa, and/or cervix. COMPARISON: US OB transvaginal [id number] 05/24/2022 3:33 PM FINDINGS: Uterus: The uterus is anteverted measuring 7.4 x 3.3 x 5.2 cm. The endometrium measures about 2 mm superiorly. No discrete uterine fibroids are present. Previously noted irregular fluid collection in the endocervical canal is no longer seen. The cervix otherwise appears unremarkable. Right ovary/adnexa: Right ovary measures 4.1 x 2.2 x 3.5 cm. No ovarian stromal edema are seen on either side. Both ovary contains several tiny simple follicles, the largest measuring 9 mm on the right. Left ovary/adnexa: Left ovary measures 3.5 x 1.7 x 3.6 cm. Urinary bladder: Urinary bladder is suboptimally assessed due to incomplete distention. Gestation: There is a somewhat discrete heterogeneous mass adjacent to the right ovary which is best seen during cine recording 2., measuring about 15 x 9 mm demonstrating central ovoid cystic area with a thick wall, which is somewhat suspicious for tubular ectopic . The current size is significantly smaller than most recent ultrasound exam. No obvious ectopic yolk sac or cardiac activity is identified. Intraperitoneal space: Multiple transvaginal pelvic ultrasound images were submitted. Duplex imaging was also performed due to pain and to exclude torsion. Transabdominal exam was not performed. No significant free pelvic fluid. US/US transvaginal [id number] IMPRESSION: Normal duplex of the ovaries. No evidence of ovarian torsion. IMPRESSION: 1. Comparison prior ultrasound 05/24/2022 and 05/22/2022. Persistent ill-defined mass adjacent to the right ovary with interval decrease in size which is somewhat suspicious for right adnexal region/tubal ectopic . No obvious ectopic yolk sac or cardiac activity. Continued quantitative HCG correlation and follow-up should be obtained. Follow-up ultrasound should also be obtained if there is persistent HCG elevation. 2. No significant free pelvic fluid or intrauterine gestational sac. Previously noted fluid in the endocervical canal is no longer seen. 3. Otherwise no suspicious ovarian lesion or torsion.
--- NOTE | 2022-06-01 17:22 | W.ED.BACK ---
HPI - Back Pain/Injury General: Chief Complaint: Back Pain/Injury Stated Complaint: Back pain, four weeks Time Seen by Provider: 06/01/22 17:09 Source: patient Mode of arrival: ambulatory Limitations: no limitations History of Present Illness: This patient presents to the emergency department because she is concerned about abdominal and flank pain that began last night. She states that pain seems to radiate around to her right back. She states that she is continue to have some vaginal spotting which is primarily pink liquid at this time. She does have a history of having a positive hCG earlier this month with an ultrasound was suggestive of a complex mass on the right ovary. 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 She denies any dysuria. She denies history of kidney stones. She does have a history of occasional urinary tract infection. She has had a prior tubal earlier this year that required operative intervention. She denies nausea vomiting or diarrhea. She denies fevers or other constitutional complaints. She states she has been a little lightheaded earlier today. No history of recent injury etc. Associated symptoms: Reports abdominal pain; Deny chills, dysuria, fever(s), nausea, syncope or vomiting Review of Systems Const: Denies: fever(s) or chills Eyes: Denies: change in vision ENMT: Denies: throat pain, odynophagia, nasal discharge or nasal congestion Card: Denies: chest pain, palpitations, irregular heart rhythm, syncope or pre-syncope Resp: Denies: dyspnea or non-productive cough GI: Reports: abdominal pain; Denies: nausea or vomiting : Reports: flank pain and vaginal bleeding; Denies: difficulty voiding, dysuria or urinary frequency Musc: Denies: neck pain, extremity pain or extremity swelling Skin/Breast: Denies: rash or pruritus Neuro: Denies: headache(s), numbness in extremities or weakness in extremities Endo: Denies: polyuria or polydipsia [facility] PFSH: Social History Smoking and tobacco status: current every day smoker cigarettes Packs smoked per day: 0.5 Alcohol intake: never Female Reproductive History: Date of last menstrual period: 05/10/22 Physical Exam Narrative: EXAM NARRATIVE: She is alert, comfortable, interactive. Makes good eye contact. Const: COMMON NORMALS: no acute distress, average body habitus, patient oriented x3, healthy appearing and alert GENERAL APPEARANCE: cooperative and comfortable HENMT: COMMON NORMALS: normocephalic, Normal nasal mucous membranes and turbinates present, moist oral mucous membranes and oropharynx normal HEAD & SCALP: normocephalic NOSE: Normal nasal mucous membranes and turbinates present Eye: COMMON NORMALS: Equal, round and reactive pupils present, EOMs intact bilaterally, conjunctivae normal and no scleral icterus CONJUNCTIVA: Yes conjunctivae normal PUPIL: Yes Equal, round and reactive pupils present Neck/C-Spine: COMMON NORMALS: full ROM and no lymphadenopathy Chest: COMMONS NORMALS: normal inspection of the chest Resp: COMMON NORMALS: normal respiratory effort, No use of accessory muscles and clear to auscultation bilaterally AUSCULTATION: clear to auscultation bilaterally Cardio: COMMON NORMALS: regular rate, regular rhythm, No murmurs present (Cardio) and Peripheral pulses 2+ throughout RATE: regular rate RHYTHM: regular rhythm PERIPHERAL PULSES: Peripheral pulses 2+ throughout GI: OTHER: Abdomen slightly distended. Normal bowel sounds. Mild tenderness at the left paramedian and left upper quadrant. No suprapubic or left or right lower quadrant tenderness. No rebound. No guarding. : COMMON NORMALS: Yes no CVA tenderness BLADDER/KIDNEY EXAM: Yes no CVA tenderness Back/Pelvis: COMMON NORMALS: no CVA tenderness, thoracic and lumbar spine normal to inspection, no thoracic nor lumbar tenderness, thoraco-lumbar ROM normal and straight leg raise negative bilaterally Extremity: COMMON NORMALS: normal to inspection, full ROM, no calf tenderness and no pedal edema Neuro: COMMON NORMALS: patient oriented x3, moves all extremities and no sensory deficits noted SENSORIUM/ORIENTATION: Yes alert Psych: COMMON NORMALS: mental status grossly normal Skin: COMMON NORMALS: no rashes or lesions noted, turgor normal and no jaundice GENERAL SKIN EXAM: no rashes or lesions noted and turgor normal Course Reevaluation(s): Reevaluation #1: RemainsPatient was reevaluated. Vital signs are noted to be in normal range. Soft. She has no evidence of rebound guarding or peritoneal signs. Rotation of her trunk does not cause any exacerbation of any symptoms. She has very mild tenderness to palpation in the right flank. She has no ecchymosis skin rash etc. I shared the results of her ultrasound and current labs with her as well. Certainly does not suggest a acute abdomen at this time or certainly no evidence of a ruptured ectopic etc. She does have a decreasing size of the right ovarian mass that will need to be followed but given her current clinical picture, 0 hCG etc. 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 Time: 19:27 Reevaluation #2: Patient was reevaluated. No new or focal findings on repeat examination and she is comfortable and is ready to be discharged from the emergency department. We discussed expected course and need for OB follow-up and return precautions to the emergency department for persistent reoccurring or worsening symptoms. Time: 21:42 Vital Signs: Vital signs: Vital Signs Temperature 98.0 F 06/01/22 16:43 Pulse Rate 93 06/01/22 21:19 Respiratory Rate 15 06/01/22 21:19 Blood Pressure 128/90 06/01/22 21:19 Pulse Oximetry 98 06/01/22 21:19 Oxygen Delivery Me thod 06/01/22 18:32 MDM - Back Pain/Injury Medical Decision Making Patient presented to the emergency department with right pelvic and right flank pain that she was concerned about might be related to her patient for ectopic or other gynecological issue. Evaluation in the emergency room did not find any evidence of surgical abdomen. Pelvic ultrasound was reassuring and that she had no evidence of free fluid or other emergent condition. Ultrasound did show that the right ovarian mass had decreased in size from previous ultrasound. Her serum hCG was negative, her urinalysis was negative and again her clinical examination was reassuring. She was observed in the emergency department and was comfortable without any evidence of other conditions at this time. Stable for discharge with gynecological follow-up. She voiced understanding of return precautions discussed. Medical Records I reviewed the patient's medical records. type O Rh+ Labs I reviewed the patient's lab results. : 06/01/22 17:50 06/01/22 17:50 Radiology Impressions Transvaginal US 06/01/22 17:20 IMPRESSION: Normal duplex of the ovaries. No evidence of ovarian torsion. IMPRESSION: 1. Comparison prior ultrasound 05/24/2022 and 05/22/2022. Persistent ill-defined mass adjacent to the right ovary with interval decrease in size which is somewhat suspicious for right adnexal region/tubal ectopic . No obvious ectopic yolk sac or cardiac activity. Continued quantitative HCG correlation and follow-up should be obtained. Follow-up ultrasound should also be obtained if there is persistent HCG elevation. 2. No significant free pelvic fluid or intrauterine gestational sac. Previously noted fluid in the endocervical canal is no longer seen. 3. Otherwise no suspicious ovarian lesion or torsion. Laboratory Results WBC 10.8 10^3/uL (4.0-10.0) H 06/01/22 17:50 RBC 4.85 10^6/uL (4.1-5.3) 06/01/22 17:50 Hgb 14.5 g/dL (11.5-15.3) 06/01/22 17:50 Hct 44.3 % (37.0-47.0) 06/01/22 17:50 MCV 91.3 fl (81-99) 06/01/22 17:50 MCH 29.9 pg (28.0-34.0) 06/01/22 17:50 MCHC 32.7 g/dL (30.0-36.0) 06/01/22 17:50 RDW 14.8 % (12.1-15.1) 06/01/22 17:50 Plt Count 292 10^3/cmm (130-400) 06/01/22 17:50 MPV 10.8 fL (7.4-10.4) H 06/01/22 17:50 Neut % (Auto) 49.1 % 06/01/22 17:50 Lymph % (Auto) 41.1 % 06/01/22 17:50 [place] % (Auto) 6.4 % 06/01/22 17:50 Eos % (Auto) 2.4 % 06/01/22 17:50 Baso % (Auto) 0.6 % 06/01/22 17:50 Neut # (Auto) 5.30 10^3/uL (1.8-7.7) 06/01/22 17:50 Lymph # (Auto) 4.4 10^3/uL (0.8-4.8) 06/01/22 17:50 [place] # (Auto) 0.7 10^3/uL (0.2-0.9) 06/01/22 17:50 Eos # (Auto) 0.3 10^3/uL (0.0-0.8) 06/01/22 17:50 Baso # (Auto) 0.1 10^3/uL (0.0-0.1) 06/01/22 17:50 Nucleated RBC % (auto) 0 % 06/01/22 17:50 Nucleated RBCs # 0.0 /100WBC 06/01/22 17:50 Sodium 137 mmol/L (136-145) 06/01/22 17:50 Potassium 3.6 mmol/L (3.5-5.1) 06/01/22 17:50 Chloride 101 mmol/L (98-107) 06/01/22 17:50 Carbon Dioxide 27 mmol/L (22-29) 06/01/22 17:50 Anion Gap 12.6 (5-19) 06/01/22 17:50 BUN 13 mg/dL (6-20) 06/01/22 17:50 Creatinine 0.6 mg/dL (0.5-0.9) 06/01/22 17:50 GFR Calculation 118.2 mL/min (90-130) 06/01/22 17:50 Glucose 84 mg/dL (65-115) 06/01/22 17:50 Calculated Osmolality 283 mOsm/kg (285-295) L 06/01/22 17:50 Calcium 9.7 mg/dL (8.5-10.5) 06/01/22 17:50 Total Bilirubin 0.2 mg/dL (0.15-1.2) 06/01/22 17:50 AST 17 U/L (0-32) 06/01/22 17:50 ALT 24 U/L (0-33) 06/01/22 17:50 Alkaline Phosphatase 99 U/L (35-105) 06/01/22 17:50 Total Protein 7.7 g/dL (6.6-8.7) 06/01/22 17:50 Albumin 4.3 g/dL (3.5-5.2) 06/01/22 17:50 Globulin 3.4 g/dL (1.3-4.6) 06/01/22 17:50 HCG, Qual Negative (Negative) 06/01/22 17:50 Urine Color Yellow (Yellow) 06/01/22 17:46 Urine Appearance Clear (CLEAR) 06/01/22 17:46 Urine pH 5 (5-7) 06/01/22 17:46 Ur Specific [place] 1.030 (1.005-1.030) 06/01/22 17:46 Urine Protein Neg (Negative) 06/01/22 17:46 Urine Glucose (UA) Norm (Normal) 06/01/22 17:46 Urine Ketones Negative (Negative) 06/01/22 17:46 Urine Blood 2+ (Negative) H 06/01/22 17:46 Urine Nitrate Negative (Negative) 06/01/22 17:46 Urine Bilirubin Neg (Negative) 06/01/22 17:46 Urine Urobilinogen Neg mg/dL (Negative) 06/01/22 17:46 Ur Leukocyte Esterase Negative (Negative) 06/01/22 17:46 Urine RBC None /hpf (0-2) 06/01/22 17:46 Urine WBC None /hpf (0-5) 06/01/22 17:46 Ur Squamous Epith Cells 5-10 /hpf (0-5) H 06/01/22 17:46 Amorphous Sediment Not Reportable 06/01/22 17:46 Urine Bacteria 2+ /hpf (NONE) H 06/01/22 17:46 Urine Mucus 1+ /hpf 06/01/22 17:46 Discharge Plan Discharge Patient Disposition: Home Clinical Impression: Ovarian mass, right Condition: Stable Prescriptions: No Action hydrocodone-acetaminophen 5-325 mg tablet 1 tab PO Q8H PRN (Reason: pain) Qty: 7 0RF sertraline 50 mg Tablet 50 mg PO BID aripiprazole 5 mg Tablet 5 mg PO DAILY Discharge Orders: Discharge ED (Routine); Ordered 06/01/22 Ordered By: Ck Diaz Referrals: Ck Diamond MD [Physician] - 4-7 days (ER follow-up.) Sesar Woodard MD [Primary Care Provider] - Discharge Diet: Usual diet Discharge Activity: Increase activity as tolerated Patient Instructions: Opioid Safety, Pain Management Activity Restrictions/Additional Instructions: As we discussed while you are in the emergency department your pelvic ultrasound was improved. Your serum test was negative and you had no other findings suggest a serious condition however if your pain worsens, persists or otherwise you develop concerning symptoms return to this emergency department. Call Dr. Diamond tomorrow to arrange follow-up in his office. 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
[2022-06-01 18:06] LABS: Basophils # 0.1 10^3/uL (0.0-0.1); Basophils % 0.6 %; Eosinophils # 0.3 10^3/uL (0.0-0.8); Eosinophils % 2.4 %; Hematocrit 44.3 % (37.0-47.0); Hemoglobin 14.5 g/dL (11.5-15.3); Lymphocytes # 4.4 10^3/uL (0.8-4.8); Lymphocytes % 41.1 %; Mean Corpuscular HGB Conc 32.7 g/dL (30.0-36.0); Mean Corpuscular Hemoglobin 29.9 pg (28.0-34.0); Mean Corpuscular Volume 91.3 fl (81-99); Mean Platelet Volume 10.8 fL (7.4-10.4); Monocytes # 0.7 10^3/uL (0.2-0.9); Monocytes % 6.4 %; Neutrophils % 49.1 %; Nucleated Red Blood Cells % 0 %; Platelet Count 292 10^3/cmm (130-400); Red Blood Count 4.85 10^6/uL (4.1-5.3); Red Cell Distribution Width 14.8 % (12.1-15.1); White Blood Count 10.8 10^3/uL (4.0-10.0)
[2022-06-01 18:27] LABS: Alanine Aminotransferase 24 U/L (0-33); Albumin Level 4.3 g/dL (3.5-5.2); Alkaline Phosphatase 99 U/L (35-105); Anion Gap 12.6 (5-19); Aspartate Amino Transferase 17 U/L (0-32); Blood Urea Nitrogen 13 mg/dL (6-20); Calcium 9.7 mg/dL (8.5-10.5); Carbon Dioxide 27 mmol/L (22-29); Chloride 101 mmol/L (98-107); Globulin 3.4 g/dL (1.3-4.6); Glomerular Filtration Rate 118.2 mL/min (90-130); Glucose 84 mg/dL (65-115); Osmolality Calculated 283 mOsm/kg (285-295); Potassium 3.6 mmol/L (3.5-5.1); Sodium 137 mmol/L (136-145); Total Bilirubin 0.2 mg/dL (0.15-1.2); Total Protein 7.7 g/dL (6.6-8.7)
[2022-06-01 18:32] VITALS: BP 126/84; PULSE 98; RESP 16; O2SAT 100
[2022-06-01 18:34] LABS: Glucose Urine UA Norm (Normal); Protein Urine Neg (Negative); Urine Appearance Clear (CLEAR); Urine Color Yellow (Yellow); pH Urine 5 (5-7)
[2022-06-01 18:35] LABS: Add Urine Microscopic? YES; Bilirubin Urine Neg (Negative); Blood Urine 2+ (Negative); Ketones Urine Negative (Negative); Leukocyte Esterase Urine Negative (Negative); Nitrate Urine Negative (Negative); Urobilinogen Urine Neg (Negative)
[2022-06-01 18:40] LABS: HCG, Serum Qual Negative (Negative)
--- NOTE | 2022-06-01 18:45 | PC.PHAR ---
NOTHING SHOWING ON EXTERNAL MED- VERIFIED USING PTS MEDICATION BOTTLES SHE HAD WITH HER
[2022-06-01 18:58] LABS: Add Urine Culture? Yes; Bacteria Urine 2+ /hpf
[2022-06-01 18:59] LABS: Mucus Urine 1+ /hpf
[2022-06-01 19:30] VITALS: BP 118/84; PULSE 96; O2SAT 99
[2022-06-01 20:00] VITALS: BP 120/84; PULSE 96; O2SAT 98
[2022-06-01 21:00] VITALS: BP 108/69; PULSE 81; O2SAT 98
[2022-06-01 21:19] VITALS: BP 128/90; PULSE 93; RESP 15; O2SAT 98
== END 2022-06-01 21:53 | disposition home or self-care (01) ==
PROVIDERS: Emergency Provider Emergency Medicine; PCP Family Medicine
DX: N83.9 Noninflammatory disorder of ovary, fallopian tube and broad ligament, unspecified (principal); F17.210 Nicotine dependence, cigarettes, uncomplicated
CPT/HCPCS: 76830; 80053; 81001; 84703; 85025; 87077; 87086; 87186; 99284

== ENCOUNTER → 2022-06-09 10:49 | Outpatient (BNVA) | payer BC, MEDICAID, SELFPAY | PROVIDERS: PCP Family Medicine; Visit Provider Obstetrics & Gynecology | DX: O20.0 Threatened abortion (principal) | CPT/HCPCS: 84702 ==

== ENCOUNTER 2022-07-15 10:20 | Outpatient (CLI) | payer OTHER, SELFPAY ==
--- NOTE | 2022-07-15 | XR_ITS ---
WS: [id number] XR lumbar spine 2-3V* [id number] REASON FOR EXAM: back pain FINDINGS: No significant alteration of the lumbar spine curvature. No significant vertebral body abnormality. Intervertebral disc spaces are relatively well-preserved. No significant listhesis. The lumbar spine is essentially unchanged compared to 07/03/2013. XR/XR lumbar spine 2-3V* [id number] IMPRESSION: No significant abnormality.
--- NOTE | 2022-07-15 | XR_ITS ---
WS: [id number] XR cervical spine 3V* [id number] REASON FOR EXAM: neck pain FINDINGS: There is mild straightening of the lordosis of the cervical spine and mild scoliotic curvature convex left on the AP view. Odontoid and the cervical vertebral bodies are normal. Intervertebral disc spaces are intact and relatively well-preserved. No facet joint abnormality is identified. No significant listhesis is seen. The cervical spine appears unchanged compared to 05/07/2021. XR/XR cervical spine 3V* [id number] IMPRESSION: Cervical spine is unchanged compared to the previous examination. Mild changes in the cervical spine curvature as above.
--- NOTE | 2022-07-15 | XR_ITS ---
WS: [id number] XR thoracic spine 2V [id number] REASON FOR EXAM: Back pain FINDINGS: Slight scoliotic curvature of the upper thoracic spine convex right. No vertebral body abnormality is identified. Intervertebral disc spaces are relatively well-preserved. XR/XR thoracic spine 2V [id number] IMPRESSION: Minimal scoliotic curvature without weightbearing. No other significant abnorma lity identified.
== END 2022-07-15 10:21 | disposition home or self-care (01) ==
PROVIDERS: PCP Family Medicine; Visit Provider Dermatology
DX: Z02.71 Encounter for disability determination (principal); M54.6 Pain in thoracic spine; M54.50 Low back pain, unspecified; M54.2 Cervicalgia; M43.8X2 Other specified deforming dorsopathies, cervical region
CPT/HCPCS: 72040; 72070; 72100

== ENCOUNTER 2023-06-10 17:26 | Emergency (ER) | payer BC, MEDICAID, SELFPAY ==
[2023-06-10 17:33] VITALS: BP 127/90; PULSE 100; RESP 18; TEMP 36.8; O2SAT 100; BMI 24.7
--- NOTE | 2023-06-10 17:35 | W.ED.ABDPA2 ---
HPI - Abdominal Pain General: Chief Complaint: Abdominal Pain Stated Complaint: abd pain/left upper side Time Seen by Provider: 06/10/23 17:30 History of Present Illness: 28-year-old female comes in today with left upper quadrant pain. Patient states that since she has been started on Seroquel for her mental health disorder she has had pain in the left upper quadrant of her abdomen just under her ribs. Patient states that it feels like symptoms been punctured . Patient appears nontoxic. Patient appears in mild pain at rest. Patient has exacerbation of pain with palpation of the abdomen. Patient denies any nausea vomiting or diarrhea. Patient reports no fever. Associated Symptoms: Denies constipation, diarrhea, fever(s), nausea and vomiting Review of Systems General: Reports: 10 or more systems reviewed and unremarkable except in HPI and below Const: Denies: fever(s) Card: Denies: chest pain Resp: Denies: dyspnea GI: Reports: abdominal pain; Denies: nausea, vomiting, diarrhea or constipation Musc: Reports: back pain Skin/Breast: Denies: rash PFSH ED PFSH: Medical History (Updated 06/10/23 @ 19:18 by PENG Baxter) Psychiatric care Social History Smoking and tobacco/nicotine status: current every day tobacco/nicotine user cigarettes Packs smoked per day: 0.5 Alcohol intake: never Substance/Drug Use: never Physical Exam Const: COMMON NORMALS: alert HENMT: COMMON NORMALS: normocephalic HEAD & SCALP: normocephalic THROAT: posterior oropharynx normal Neck/C-Spine: COMMON NORMALS: full ROM Chest: COMMONS NORMALS: normal inspection of the chest and normal palpation of entire chest wall Resp: COMMON NORMALS: normal respiratory effort and clear to auscultation bilaterally AUSCULTATION: clear to auscultation bilaterally Cardio: COMMON NORMALS: regular rate RATE: regular rate GI: COMMON NORMALS: Soft to palpation PALPATION: Yes Soft to palpation and Yes Tenderness to palpation present (GI) Details: LUQ Back/Pelvis: COMMON NORMALS: thoracic and lumbar spine normal to inspection Extremity: COMMON NORMALS: normal to inspection Neuro: SENSORIUM/ORIENTATION: Yes alert Skin: COMMON NORMALS: turgor normal GENERAL SKIN EXAM: turgor normal Course Vital Signs: Vital signs: Vital Signs Temperature 98.2 F 06/10/23 17:33 Pulse Rate 94 06/10/23 18:02 Respiratory Rate 16 06/10/23 18:02 Blood Pressure 119/82 06/10/23 18:02 Pulse Oximetry 99 06/10/23 18:02 Oxygen Delivery Me thod Room Air 06/10/23 18:02 MDM - Abdominal Pain Medical Decision Making Patient presents today with complaints of left upper quadrant pain. Patient states on Monday she had taken Seroquel for a new prescription and after taking the medicine she had significant pain and discomfort to the left upper quadrant of her abdomen. Patient continues to have discomfort but has not taken any more of the medication. Patient appears nontoxic. Patient appears in mild pain at rest. Vital signs are normal. Abdomen soft. Differential diagnosis includes but not limited to peptic ulcer disease, gastritis, adverse drug effect, costochondritis, constipation, pancreatitis. CBC and CMP were unremarkable. Urinalysis has increased white blood cells and red blood cells. Acute abdominal series noted some increased stool in the bowel but no other signs of perforation or bowel obstruction. I believe patient probably has some mild gastritis secondary to the Seroquel. No signs of pancreatitis or severe reaction was noted. Patient also has a mild urinary tract infection which we will treat with cephalexin and hopefully this will be twofold assisting with the mild infection and handling the increased stool in the bowel which may be contributing to her pain. Patient reported understanding of care plan and need for follow-up or return to the ER. Lab Data 06/10/23 17:45 06/10/23 17:45 Labs/Radiology: Radiology Impressions Chest/Abdomen X-ray 06/10/23 17:40 IMPRESSION: No acute findings. Laboratory Results WBC 11.13 10^3/uL (3.29-11.43) 06/10/23 17:45 RBC 4.56 10^6/uL (3.85-5.65) 06/10/23 17:45 Hgb 13.70 g/dL (11.27-16.99) 06/10/23 17:45 Hct 42.2 % (36-47) 06/10/23 17:45 MCV 92.5 fl (85-98) 06/10/23 17:45 MCH 30.0 pg (27-33) 06/10/23 17:45 MCHC 32.5 g/dL (30-55) 06/10/23 17:45 RDW 13.6 % (12.1-15.1) 06/10/23 17:45 Plt Count 235 10^3/cmm (157-399) 06/10/23 17:45 MPV 10.7 fL (7.4-10.4) H 06/10/23 17:45 Neut % (Auto) 46.4 % 06/10/23 17:45 Lymph % (Auto) 43.6 % 06/10/23 17:45 [place] % (Auto) 7.1 % 06/10/23 17:45 Eos % (Auto) 2.0 % 06/10/23 17:45 Baso % (Auto) 0.7 % 06/10/23 17:45 Neut # (Auto) 5.17 10^3/uL (1.8-7.7) 06/10/23 17:45 Lymph # (Auto) 4.9 10^3/uL (0.8-4.8) H 06/10/23 17:45 [place] # (Auto) 0.8 10^3/uL (0.2-0.9) 06/10/23 17:45 Eos # (Auto) 0.2 10^3/uL (0.0-0.8) 06/10/23 17:45 Baso # (Auto) 0.1 10^3/uL (0.0-0.1) 06/10/23 17:45 Nucleated RBC % (auto) 0 % 06/10/23 17:45 Nucleated RBCs # 0.0 /100WBC 06/10/23 17:45 Sodium 140 mmol/L (136-145) 06/10/23 17:45 Potassium 3.5 mmol/L (3.5-5.1) 06/10/23 17:45 Chloride 105 mmol/L (98-107) 06/10/23 17:45 Carbon Dioxide 26 mmol/L (22-29) 06/10/23 17:45 Anion Gap 12.5 (5-19) 06/10/23 17:45 BUN 10 mg/dL (6-20) 06/10/23 17:45 Creatinine 0.7 mg/dL (0.5-0.9) 06/10/23 17:45 GFR Calculation 98.3 mL/min (90-130) 06/10/23 17:45 Glucose 94 mg/dL (65-115) 06/10/23 17:45 Calculated Osmolality 289 mOsm/kg (285-295) 06/10/23 17:45 Calcium 9.2 mg/dL (8.5-10.5) 06/10/23 17:45 Total Bilirubin 0.2 mg/dL (0.15-1.2) 06/10/23 17:45 AST 12 U/L (0-32) 06/10/23 17:45 ALT 15 U/L (0-33) 06/10/23 17:45 Alkaline Phosphatase 80 U/L (35-105) 06/10/23 17:45 Total Protein 7.1 g/dL (6.6-8.7) 06/10/23 17:45 Albumin 4.2 g/dL (3.5-5.2) 06/10/23 17:45 Globulin 2.9 g/dL (1.3-4.6) 06/10/23 17:45 Lipase 36 U/L (13-60) 06/10/23 17:45 HCG, Qual Negative (Negative) 06/10/23 17:45 Urine Color Yellow (Yellow) 06/10/23 17:55 Urine Appearance Cloudy (CLEAR) A 06/10/23 17:55 Urine pH 6.5 (5-7) 06/10/23 17:55 Ur Specific [place] 1.015 (1.005-1.030) 06/10/23 17:55 Urine Protein Trace (Negative) 06/10/23 17:55 Urine Glucose (UA) Norm (Normal) 06/10/23 17:55 Urine Ketones 1+ (Negative) H 06/10/23 17:55 Urine Blood 2+ (Negative) H 06/10/23 17:55 Urine Nitrate Negative (Negative) 06/10/23 17:55 Urine Bilirubin Neg (Negative) 06/10/23 17:55 Urine Urobilinogen 4 mg/dL (Negative) H 06/10/23 17:55 Ur Leukocyte Esterase 1+ (Negative) H 06/10/23 17:55 Urine RBC 5-10 /hpf (0-2) H 06/10/23 17:55 Urine WBC 0-4 /hpf (0-5) H 06/10/23 17:55 Ur Squamous Epith Cells 10-15 /hpf (0-5) H 06/10/23 17:55 Ur Transition Epith Cell 0-4 /hpf 06/10/23 17:55 Amorphous Sediment Not Reportable 06/10/23 17:55 Urine Bacteria 1+ /hpf (NONE) H 06/10/23 17:55 Urine Mucus 3+ /hpf 06/10/23 17:55 All radiology interpretation(s) finalized by discharge Discharge Plan Discharge Patient Disposition: Home Clinical Impression: Adverse drug effect Qualifiers: Encounter type: initial encounter Qualified Code(s): T50.905A - Adverse effect of unspecified drugs, medicaments and biological substances, initial encounter UTI (urinary tract infection) Qualifiers: Urinary tract infection type: acute cystitis Hematuria presence: without hematuria Qualified Code(s): N30.00 - Acute cystitis without hematuria Gastritis Qualifiers: Gastritis type: unspecified gastritis Chronicity: acute Gastritis bleeding: without bleeding Qualified Code(s): K29.00 - Acute gastritis without bleeding Condition: Stable Prescriptions: New pantoprazole 40 mg tablet,delayed release (DR/EC) 40 mg PO DAILY Qty: 14 0RF cephalexin 500 mg capsule 500 mg PO TID 7 Days Qty: 21 0RF No Action fluoxetine [Prozac] 20 mg capsule 20 mg PO DAILY Qty: 30 0RF fluoxetine [Prozac] 40 mg capsule 40 mg PO DAILY Qty: 30 0RF Rx Instructions: Start after 1 month on 20 mg. Discharge Orders: Discharge ED (Routine); Ordered 06/10/23 Ordered By: Bertin Peters Referrals: Bertin Craft DO [Primary Care Provider] - Discharge Diet: Usual diet Discharge Activity: Increase activity as tolerated Patient Instructions: Gastritis (ED) Activity Restrictions/Additional Instructions: Your abdominal pain is most likely caused by gastritis secondary to the addition of Seroquel. Hold the Seroquel and talk with your ordering provider about other medications to use. You have also been found to have a urinary tract infection we will treat this with cephalexin 500 mg 3 times a day for the next 7 days. Follow-up with primary care in 1 week for recheck. You have also been prescribed pantoprazole 40 mg daily for the gastritis which will help with your pain and discomfort. Return to ER for new concerns or worsening symptoms such as high fever or blood in vomit or stool. 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
--- NOTE | 2023-06-10 17:40 | XRR_ITS ---
PROCEDURE INFORMATION: Exam: XR Complete Acute Abdomen Series Including Chest Exam date and time: 06/10/2023 6:21 PM Age: 28 years old Clinical indication: Abdominal pain; Patient HX: Sudden onset luq/epigastric pain; PT states she started taking seroquel and pain started an hour later. TECHNIQUE: Imaging protocol: Radiologic exam. Complete acute abdomen series, including 2 or more views of the abdomen and a single view chest. COMPARISON: [place] [id number] 09/28/2020 6:36 PM FINDINGS: Lungs: Normal. No consolidation. Pleural spaces: Normal. No pleural effusions. No pneumothorax. Heart/Mediastinum: Normal. No cardiomegaly. Gastrointestinal tract: Normal. No bowel dilation. Minimal stool scattered in the colon. Intraperitoneal space: Normal. No free air. Bones/joints: Normal. No acute fracture. Soft tissues: Normal. XR/XR acute abdomen series [id number] IMPRESSION: No acute findings.
[2023-06-10 17:50] LABS: Basophils # 0.1 10^3/uL (0.0-0.1); Basophils % 0.7 %; Eosinophils # 0.2 10^3/uL (0.0-0.8); Hematocrit 42.2 % (36-47); Lymphocytes # 4.9 10^3/uL (0.8-4.8); Lymphocytes % 43.6 %; Mean Corpuscular HGB Conc 32.5 g/dL (30-55); Mean Corpuscular Volume 92.5 fl (85-98); Mean Platelet Volume 10.7 fL (7.4-10.4); Monocytes # 0.8 10^3/uL (0.2-0.9); Monocytes % 7.1 %; Neutrophils # 5.17 10^3/uL (1.8-7.7); Neutrophils % 46.4 %; Nucleated Red Blood Cells % 0 %; Platelet Count 235 10^3/cmm (157-399); Red Blood Count 4.56 10^6/uL (3.85-5.65); Red Cell Distribution Width 13.6 % (12.1-15.1); White Blood Count 11.13 10^3/uL (3.29-11.43)
[2023-06-10 18:02] VITALS: BP 119/82; PULSE 94; RESP 16; O2SAT 99
[2023-06-10 18:11] LABS: HCG, Serum Qual Negative (Negative)
[2023-06-10] MEDS: fentaNYL 50 mcg/mL INJ 2mL IVP (18:12)
[2023-06-10 18:15] LABS: Alanine Aminotransferase 15 U/L (0-33); Albumin Level 4.2 g/dL (3.5-5.2); Alkaline Phosphatase 80 U/L (35-105); Anion Gap 12.5 (5-19); Aspartate Amino Transferase 12 U/L (0-32); Blood Urea Nitrogen 10 mg/dL (6-20); Calcium 9.2 mg/dL (8.5-10.5); Carbon Dioxide 26 mmol/L (22-29); Chloride 105 mmol/L (98-107); Globulin 2.9 g/dL (1.3-4.6); Glomerular Filtration Rate 98.3 mL/min (90-130); Glucose 94 mg/dL (65-115); Lipase 36 U/L (13-60); Osmolality Calculated 289 mOsm/kg (285-295); Potassium 3.5 mmol/L (3.5-5.1); Sodium 140 mmol/L (136-145); Total Bilirubin 0.2 mg/dL (0.15-1.2); Total Protein 7.1 g/dL (6.6-8.7)
[2023-06-10 18:32] LABS: Glucose Urine UA Norm (Normal); Protein Urine Trace (Negative); Specific Gravity, Urine 1.015 (1.005-1.030); Urine Appearance Cloudy (CLEAR); Urine Color Yellow (Yellow); pH Urine 6.5 (5-7)
[2023-06-10 18:33] LABS: Add Urine Microscopic? YES; Bilirubin Urine Neg (Negative); Blood Urine 2+ (Negative); Ketones Urine 1+ (Negative); Leukocyte Esterase Urine 1+ (Negative); Nitrate Urine Negative (Negative); Urobilinogen Urine 4 mg/dL (Negative)
[2023-06-10 18:37] LABS: Bacteria Urine 1+ /hpf; Mucus Urine 3+ /hpf; Transitional Epi Cells Urine 0-4 /hpf; WBC Urine 0-4 /hpf (0-5)
[2023-06-10 18:38] LABS: Add Urine Culture? No
[2023-06-10] MEDS: pantoprazole 40 mg SDV IVP (19:19)
[2023-06-10 19:25] VITALS: BP 109/83; PULSE 90; RESP 14; O2SAT 100
== END 2023-06-10 19:30 | disposition home or self-care (01) ==
PROVIDERS: Emergency Provider Nurse Practitioner Family; PCP Family Medicine
DX: N30.00 Acute cystitis without hematuria (principal); K29.00 Acute gastritis without bleeding; F17.210 Nicotine dependence, cigarettes, uncomplicated; T88.7XXA Unspecified adverse effect of drug or medicament, initial encounter; T43.595A Adverse effect of other antipsychotics and neuroleptics, initial encounter; X58.XXXA Exposure to other specified factors, initial encounter
CPT/HCPCS: 36415; 74022; 80053; 81001; 83690; 84703; 85025; 96374; 96375; 99284; C9113; J3010

== ENCOUNTER 2024-01-24 08:15 | Emergency (ER) | payer BC, MEDICAID, SELFPAY ==
[2024-01-24 08:19] VITALS: BP 118/86; PULSE 96; RESP 18; TEMP 36.5; O2SAT 100; BMI 23.9
[2024-01-24 08:41] LABS: HCG Qualitative Urine. Negative (Negative)
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
[2024-01-24] MEDS: cefTRIAXone 250 MG in water for injection-sterile 0.9 ML IM (09:12)
[2024-01-24] MEDS: azithromycin 250 mg Tablet 1000 MG PO (09:12)
[2024-01-24 09:21] LABS: Add Urine Microscopic? YES; Bilirubin Urine Neg (Negative); Blood Urine 2+ (Negative); Glucose Urine UA Norm (Normal); Ketones Urine Negative (Negative); Leukocyte Esterase Urine Negative (Negative); Nitrate Urine Negative (Negative); Protein Urine Neg (Negative); RBC Urine 0-4 /hpf (0-2); Squamous Epithelial Cell Urine 25-40 /hpf (0-5); Urine Appearance Cloudy (CLEAR); Urine Color Yellow (Yellow); Urobilinogen Urine Norm (Negative); WBC Urine 0-4 /hpf (0-5); pH Urine 5 (5-7)
[2024-01-24 09:22] VITALS: PULSE 64; O2SAT 98
[2024-01-24 09:22] LABS: Bacteria Urine 1+ /hpf; Mucus Urine 3+ /hpf
[2024-01-24 09:33] VITALS: BP 111/98; PULSE 65; RESP 20; O2SAT 98
[2024-01-24 10:19] VITALS: BP 111/98; PULSE 65; RESP 20; O2SAT 98
[2024-01-25 20:19] LABS: Chlamydia Trachomatis RNA TMA NOT DETECTED (NOT DETECTED); Neisseria Gonorrhoeae RNA, TMA NOT DETECTED (NOT DETECTED)
== END 2024-01-24 10:21 | disposition home or self-care (01) ==
PROVIDERS: Emergency Provider Emergency Medicine; PCP Family Medicine
DX: N89.8 Other specified noninflammatory disorders of vagina (principal); F17.210 Nicotine dependence, cigarettes, uncomplicated
CPT/HCPCS: 81001; 81025; 87210; 87491; 87591; 87661; 99284; J0696; Q0144

== ENCOUNTER 2024-04-21 19:49 | Emergency (ER) | payer BC, MEDICAID, SELFPAY ==
[2024-04-21 19:58] VITALS: BP 103/66; PULSE 78; RESP 18; TEMP 36.8; O2SAT 97; BMI 23.6
--- NOTE | 2024-04-21 20:30 | W.ED.URI ---
HPI - URI/Sore Throat General: Chief Complaint: Upper Respiratory Infection Stated Complaint: Fever,Couph,SOB Time Seen by Provider: 04/21/24 20:06 History of Present Illness: 29-year-old female comes in today with fever, cough, and congestion. Patient appears mildly unwell but not toxic. Patient reports no chronic medical problems. Patient believes that she may have contracted COVID. Associated symptoms: Reports fever(s) Related Data Home Medications Medication Instructions Recorded Confirmed No Known Home Medications 01/24/24 01/24/24 Allergies Allergy/AdvReac Type Severity Reaction Status Date / Time No Known Allergies Allergy Verified 06/10/23 17:36 Review of Systems General: Reports: 10 or more systems reviewed and unremarkable except in HPI and below Const: Reports: fever(s), body aches and malaise ENMT: Reports: throat pain Resp: Reports: non-productive cough PFSH ED PFSH: Social History Smoking and tobacco/nicotine status: current every day tobacco/nicotine user cigarettes Packs smoked per day: 0.5 Alcohol intake: never Substance/Drug Use: never Physical Exam Const: COMMON NORMALS: alert HENMT: COMMON NORMALS: normocephalic HEAD & SCALP: normocephalic THROAT: posterior oropharynx abnormal erythema Neck/C-Spine: COMMON NORMALS: full ROM Resp: COMMON NORMALS: normal respiratory effort and clear to auscultation bilaterally AUSCULTATION: clear to auscultation bilaterally Cardio: COMMON NORMALS: regular rate RATE: regular rate GI: COMMON NORMALS: non-tender Extremity: COMMON NORMALS: full ROM Neuro: SENSORIUM/ORIENTATION: Yes alert Skin: COMMON NORMALS: turgor normal GENERAL SKIN EXAM: turgor normal Course Vital Signs: Vital signs: Vital Signs Temperature 98.3 F 04/21/24 19:58 Pulse Rate 78 04/21/24 19:58 Respiratory Rate 18 04/21/24 19:58 Blood Pressure 103/66 04/21/24 19:58 Pulse Oximetry 97 04/21/24 19:58 Oxygen Delivery Me thod Room Air 04/21/24 19:58 MDM - URI/Sore Throat Medical Decision Making 29-year-old female comes in today for complaints of sore throat, cough, and fever. Patient also reports some congestion in the chest. On exam lungs are clear to auscultation. Posterior pharynx is erythematous. Patient has some nasal drainage. differential diagnosis includes but not limited to upper respiratory infection, bronchitis, viral syndrome, strep pharyngitis. Strep test was negative. Patient was positive for COVID-19. Reviewed exam with patient with recommendation for treatment follow-up. Patient reported understanding agreed to plan. Lab Data Laboratory Results SARS-CoV-2 Ag (Rapid) Positive (Negative) H 04/21/24 20:30 Group A Strep Rapid Negative (Negative) 04/21/24 20:30 No radiology studies performed this visit Discharge Plan Discharge Patient Disposition: Home Clinical Impression: COVID-19 Condition: Stable Prescriptions: No Action No Known Home Medications Discharge Orders: Discharge ED (Routine); Ordered 04/21/24 Ordered By: Bertin Peters Referrals: Bertin Craft DO [Primary Care Provider] - Discharge Diet: Usual diet Discharge Activity: Increase activity as tolerated Patient Instructions: COVID-19 (Coronavirus Disease 2019) (ED) Activity Restrictions/Additional Instructions: Home and rest. Drink plenty water and fluids. Follow-up with primary care for further instructions. Recent recommendations from the CDC states that patient can return to work or school after being 24 hours free of fever as long as they are feeling better. Otherwise, the illness usually last 3 to 5 days. Push fluids and use acetaminophen and ibuprofen for discomfort. Follow-up with primary care as needed. Return to ED for worsening symptoms such as severe chest pain, severe shortness of breath, or new concerns. 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
[2024-04-21 20:50] LABS: Rapid Strep A Test Negative (Negative)
[2024-04-21 20:57] LABS: SARS Covid-2 Antigen Positive (Negative)
[2024-04-21 21:16] VITALS: BP 119/71; PULSE 90; RESP 17; O2SAT 96
== END 2024-04-21 21:16 | disposition home or self-care (01) ==
PROVIDERS: Emergency Provider Nurse Practitioner Family; PCP Family Medicine
DX: U07.1 COVID-19 (principal); F17.210 Nicotine dependence, cigarettes, uncomplicated
CPT/HCPCS: 87081; 87426; 87880; 99283

== ENCOUNTER 2024-08-20 12:51 | Emergency (ER) | payer BC, MEDICAID, SELFPAY ==
[2024-08-20 13:01] VITALS: BP 111/63; PULSE 97; TEMP 36.8; O2SAT 100; BMI 25.1
[2024-08-20 14:26] LABS: Basophils % 0.4 %; Eosinophils # 0.2 10^3/uL (0.0-0.8); Eosinophils % 2.1 %; Hematocrit 43.4 % (36-47); Lymphocytes % 40.6 %; Mean Corpuscular HGB Conc 32.5 g/dL (30-55); Mean Corpuscular Hemoglobin 29.6 pg (27-33); Mean Corpuscular Volume 91.2 fl (85-98); Mean Platelet Volume 9.9 fL (7.4-10.4); Monocytes # 0.5 10^3/uL (0.2-0.9); Monocytes % 5.2 %; Neutrophils # 5.08 10^3/uL (1.8-7.7); Neutrophils % 51.3 %; Nucleated Red Blood Cells % 0 %; Platelet Count 365 10^3/cmm (157-399); Red Blood Count 4.76 10^6/uL (3.85-5.65); Red Cell Distribution Width 13.7 % (12.1-15.1)
--- NOTE | 2024-08-20 14:54 | W.ED.ABDPA2 ---
HPI - Abdominal Pain General: Chief Complaint: Abdominal Pain Stated Complaint: preg, cramping Time Seen by Provider: 08/20/24 14:51 History of Present Illness: 29-year-old female presents with lower abdominal pain that started yesterday. Patient reports that started yesterday that she is describing some cramping. Patient reports a cramping along the lower abdomen. She noticed it when she got up. Patient reports that her last menstrual period around 07/18/2024. She reports she had a 10 to 15 pound weight gain in the last month and that she has had some positive test. Associated Symptoms: Denies chills and fever(s) Related Data Home Medications Medication Instructions Recorded Confirmed amoxicillin 500 mg capsule 500 mg PO TID 08/20/24 08/20/24 Previous Rx's Medication Instructions Recorded cephalexin 500 mg capsule 500 mg PO Q6H 10 days #40 caps 08/20/24 Allergies Allergy/AdvReac Type Severity Reaction Status Date / Time No Known Allergies Allergy Verified 08/20/24 13:04 Review of Systems Const: Denies: fever(s) or chills Card: Denies: chest pain or palpitations Resp: Denies: dyspnea or productive cough GI: Reports: abdominal pain (Bilateral lower abdomen) : Denies: flank pain, difficulty voiding or vaginal bleeding Skin/Breast: Denies: rash Neuro: Denies: headache(s) or numbness in extremities PFSH ED PFSH: Social History Smoking and tobacco/nicotine status: current every day tobacco/nicotine user cigarettes Packs smoked per day: 0.5 Alcohol intake: never Substance/Drug Use: never Physical Exam Const: COMMON NORMALS: no acute distress, average body habitus and patient oriented x3 Resp: COMMON NORMALS: normal respiratory effort, No retractions and No use of accessory muscles Cardio: COMMON NORMALS: regular rate and regular rhythm RATE: regular rate RHYTHM: regular rhythm GI: COMMON NORMALS: Soft to palpation PALPATION: Yes Soft to palpation OTHER: Mild tenderness bilateral lower abdomen : COMMON NORMALS: Yes no CVA tenderness BLADDER/KIDNEY EXAM: Yes no CVA tenderness Back/Pelvis: COMMON NORMALS: no CVA tenderness Neuro: COMMON NORMALS: patient oriented x3, CN's II-XII intact bilaterally and moves all extremities Psych: COMMON NORMALS: cooperative and normal affect Skin: COMMON NORMALS: no rashes or lesions noted GENERAL SKIN EXAM: no rashes or lesions noted Course Vital Signs: Vital signs: Vital Signs Temperature 98.3 F 08/20/24 13:01 Pulse Rate 108 H 08/20/24 15:30 Respiratory Rate 18 08/20/24 15:30 Blood Pressure 117/81 08/20/24 15:30 Pulse Oximetry 100 08/20/24 15:30 Oxygen Delivery Me thod Room Air 08/20/24 15:30 MDM - Abdominal Pain Medical Decision Making Patient's diagnostic studies were reviewed by me. Patient's urinalysis is consistent with a likely urinary tract infection early . Patient hCG is 391. I discussed with her that it needs to be at least 1500 for indication of an ultrasound to show anything including an ectopic versus normal intrauterine . Patient symptoms are bilateral which were much more consistent with a possible urinary tract infection causing her discomfort. Patient will be started on Keflex. I recommend she follow-up closely with her OB and primary care provider especially if symptoms continue to worsen. Patient stable and discharged home Lab Data 08/20/24 14:15 08/20/24 14:15 Labs/Radiology: Laboratory Results WBC 9.90 10^3/uL (3.29-11.43) 08/20/24 14:15 RBC 4.76 10^6/uL (3.85-5.65) 08/20/24 14:15 Hgb 14.10 g/dL (11.27-16.99) 08/20/24 14:15 Hct 43.4 % (36-47) 08/20/24 14:15 MCV 91.2 fl (85-98) 08/20/24 14:15 MCH 29.6 pg (27-33) 08/20/24 14:15 MCHC 32.5 g/dL (30-55) 08/20/24 14:15 RDW 13.7 % (12.1-15.1) 08/20/24 14:15 Plt Count 365 10^3/cmm (157-399) 08/20/24 14:15 MPV 9.9 fL (7.4-10.4) 08/20/24 14:15 Neut % (Auto) 51.3 % 08/20/24 14:15 Lymph % (Auto) 40.6 % 08/20/24 14:15 [place] % (Auto) 5.2 % 08/20/24 14:15 Eos % (Auto) 2.1 % 08/20/24 14:15 Baso % (Auto) 0.4 % 08/20/24 14:15 Neut # (Auto) 5.08 10^3/uL (1.8-7.7) 08/20/24 14:15 Lymph # (Auto) 4.0 10^3/uL (0.8-4.8) 08/20/24 14:15 [place] # (Auto) 0.5 10^3/uL (0.2-0.9) 08/20/24 14:15 Eos # (Auto) 0.2 10^3/uL (0.0-0.8) 08/20/24 14:15 Baso # (Auto) 0.0 10^3/uL (0.0-0.1) 08/20/24 14:15 Nucleated RBC % (auto) 0 % 08/20/24 14:15 Nucleated RBCs # 0.0 /100WBC 08/20/24 14:15 Sodium 139 mmol/L (136-145) 08/20/24 14:15 Potassium 3.7 mmol/L (3.5-5.1) 08/20/24 14:15 Chloride 101 mmol/L (98-107) 08/20/24 14:15 Carbon Dioxide 27 mmol/L (22-29) 08/20/24 14:15 Anion Gap 14.7 (5-19) 08/20/24 14:15 BUN 9 mg/dL (6-20) 08/20/24 14:15 Creatinine 0.6 mg/dL (0.5-0.9) 08/20/24 14:15 GFR Calculation 116.6 mL/min (90-130) 08/20/24 14:15 Glucose 82 mg/dL (65-115) 08/20/24 14:15 Calculated Osmolality 286 mOsm/kg (285-295) 08/20/24 14:15 Calcium 9.3 mg/dL (8.5-10.5) 08/20/24 14:15 Total Bilirubin 0.2 mg/dL (0.15-1.2) 08/20/24 14:15 AST 13 U/L (0-32) 08/20/24 14:15 ALT 21 U/L (0-33) 08/20/24 14:15 Alkaline Phosphatase 83 U/L (35-105) 08/20/24 14:15 Total Protein 7.0 g/dL (6.6-8.7) 08/20/24 14:15 Albumin 4.1 g/dL (3.5-5.2) 08/20/24 14:15 Globulin 2.9 g/dL (1.3-4.6) 08/20/24 14:15 Ser , Semi-Qnt 391.50 mIU/mL 08/20/24 14:15 Urine Color Yellow (Yellow) 08/20/24 13:55 Urine Appearance Cloudy (CLEAR) A 08/20/24 13:55 Urine pH 7.0 (5-7) 08/20/24 13:55 Ur Specific [place] 1.019 (1.005-1.030) 08/20/24 13:55 Urine Protein Negative (Negative) 08/20/24 13:55 Urine Glucose (UA) Negative (Normal) 08/20/24 13:55 Urine Ketones Negative (Negative) 08/20/24 13:55 Urine Blood Negative (Negative) 08/20/24 13:55 Urine Nitrate Negative (Negative) 08/20/24 13:55 Urine Bilirubin Negative (Negative) 08/20/24 13:55 Urine Urobilinogen 1.0 mg/dL (Negative) 08/20/24 13:55 Ur Leukocyte Esterase Negative (Negative) 08/20/24 13:55 Urine RBC 0-2 /hpf (0-2) 08/20/24 13:55 Urine WBC 11-20 /hpf (0-5) H 08/20/24 13:55 Ur Squamous Epith Cells 21-50 /hpf (0-5) 08/20/24 13:55 Amorphous Sediment Not Reportable 08/20/24 13:55 Urine Bacteria 2+ /hpf (NONE) H 08/20/24 13:55 Hyaline Casts 0.81 /lpf 08/20/24 13:55 Blood Type O Positive 08/20/24 14:15 Rho(D) Type Rh positive 08/20/24 14:15 No radiology studies performed this visit Discharge Plan Discharge Patient Disposition: Home Clinical Impression: , Urinary tract infection affecting Condition: Stable Prescriptions: New cephalexin 500 mg capsule 500 mg PO Q6H 10 Days Qty: 40 0RF No Action amoxicillin 500 mg capsule 500 mg PO TID Discharge Orders: Discharge ED (Routine); Ordered 08/20/24 Ordered By: Mansoor Agosto Referrals: Bertin Craft DO [Primary Care Provider] - Discharge Diet: Usual diet Discharge Activity: Increase activity as tolerated Patient Instructions: Abdominal Pain in (ED), Urinary Tract Infection in (ED), Opioid Safety, Pain Management Activity Restrictions/Additional Instructions: Please follow-up with your 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 Be sure you are drinking plenty of fluids. 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
[2024-08-20 15:08] LABS: Alanine Aminotransferase 21 U/L (0-33); Albumin Level 4.1 g/dL (3.5-5.2); Alkaline Phosphatase 83 U/L (35-105); Anion Gap 14.7 (5-19); Aspartate Amino Transferase 13 U/L (0-32); Blood Urea Nitrogen 9 mg/dL (6-20); Calcium 9.3 mg/dL (8.5-10.5); Carbon Dioxide 27 mmol/L (22-29); Chloride 101 mmol/L (98-107); Globulin 2.9 g/dL (1.3-4.6); Glomerular Filtration Rate 116.6 mL/min (90-130); Glucose 82 mg/dL (65-115); Osmolality Calculated 286 mOsm/kg (285-295); Potassium 3.7 mmol/L (3.5-5.1); Sodium 139 mmol/L (136-145); Total Bilirubin 0.2 mg/dL (0.15-1.2)
[2024-08-20 15:22] VITALS: BP 115/78; PULSE 91; O2SAT 100
[2024-08-20 15:30] VITALS: BP 117/81; PULSE 108; RESP 18; O2SAT 100
[2024-08-20 15:56] LABS: Bilirubin Urine Negative (Negative); Blood Urine Negative (Negative); Glucose Urine UA Negative (Normal); Ketones Urine Negative (Negative); Leukocyte Esterase Urine Negative (Negative); Nitrate Urine Negative (Negative); Protein Urine Negative (Negative); Specific Gravity, Urine 1.019 (1.005-1.030); Urine Appearance Cloudy (CLEAR); Urine Color Yellow (Yellow)
[2024-08-20 16:01] LABS: Add Urine Microscopic? YES; Bacteria Urine 2+ /hpf; Hyaline Casts Urine 0.81 /lpf; RBC Urine 0-2 /hpf (0-2); Squamous Epithelial Cell Urine 21-50 /hpf (0-5)
[2024-08-20 16:20] VITALS: BP 119/79; PULSE 88; O2SAT 96
== END 2024-08-20 16:21 | disposition home or self-care (01) ==
PROVIDERS: Physician Assistant; Emergency Provider Student in an Organized Health Care Education/Training Program; PCP Family Medicine
DX: O23.40 Unspecified infection of urinary tract in pregnancy, unspecified trimester (principal); N39.0 Urinary tract infection, site not specified; F17.210 Nicotine dependence, cigarettes, uncomplicated
CPT/HCPCS: 36415; 80053; 81001; 84702; 85025; 86900; 99283

== ENCOUNTER 2024-09-30 12:58 | Emergency (ER) | payer BC, MEDICAID, SELFPAY ==
[2024-09-30 13:03] VITALS: BP 123/87; PULSE 98; TEMP 36.8; O2SAT 99; BMI 25.7
[2024-09-30 15:07] LABS: Basophils # 0.1 10^3/uL (0.0-0.1); Basophils % 0.5 %; Eosinophils # 0.3 10^3/uL (0.0-0.8); Eosinophils % 2.8 %; Hematocrit 43.6 % (36-47); Lymphocytes # 4.9 10^3/uL (0.8-4.8); Lymphocytes % 40.9 %; Mean Corpuscular HGB Conc 32.6 g/dL (30-55); Mean Corpuscular Hemoglobin 30.4 pg (27-33); Mean Corpuscular Volume 93.4 fl (85-98); Mean Platelet Volume 10.5 fL (7.4-10.4); Monocytes # 0.9 10^3/uL (0.2-0.9); Monocytes % 7.4 %; Neutrophils # 5.76 10^3/uL (1.8-7.7); Neutrophils % 48.2 %; Nucleated Red Blood Cells % 0 %; Platelet Count 291 10^3/cmm (157-399); Red Blood Count 4.67 10^6/uL (3.85-5.65); Red Cell Distribution Width 13.8 % (12.1-15.1); White Blood Count 11.94 10^3/uL (3.29-11.43)
[2024-09-30 15:18] LABS: HCG, Serum Qual Negative (Negative)
[2024-09-30 15:26] LABS: Alanine Aminotransferase 15 U/L (0-33); Albumin Level 4.2 g/dL (3.5-5.2); Alkaline Phosphatase 94 U/L (35-105); Anion Gap 16.2 (5-19); Aspartate Amino Transferase 12 U/L (0-32); Blood Urea Nitrogen 11 mg/dL (6-20); Calcium 9.6 mg/dL (8.5-10.5); Carbon Dioxide 25 mmol/L (22-29); Chloride 101 mmol/L (98-107); Creatinine Clr Calc Pharmacy 123.8516; Globulin 3.1 g/dL (1.3-4.6); Glomerular Filtration Rate 116.6 mL/min (90-130); Glucose 88 mg/dL (65-115); Lipase 43 U/L (13-60); Osmolality Calculated 285 mOsm/kg (285-295); Potassium 4.2 mmol/L (3.5-5.1); Sodium 138 mmol/L (136-145); Total Bilirubin 0.2 mg/dL (0.15-1.2); Total Protein 7.3 g/dL (6.6-8.7)
== END 2024-09-30 16:03 | disposition left against medical advice (07) ==
PROVIDERS: Physician Assistant; Emergency Provider Family Medicine; PCP Family Medicine
DX: Z53.21 Procedure and treatment not carried out due to patient leaving prior to being seen by health care provider (principal)
CPT/HCPCS: 36415; 80053; 83690; 84703; 85025

== ENCOUNTER 2024-10-11 09:17 | Emergency (ER) | payer BC, MEDICAID, SELFPAY ==
[2024-10-11 09:32] VITALS: BP 111/67; PULSE 89; RESP 18; TEMP 36.9; O2SAT 99; BMI 25.7
[2024-10-11 10:35] LABS: Bilirubin Urine Negative (Negative); Blood Urine 3+ (Negative); Glucose Urine UA Negative (Normal); Ketones Urine Trace (Negative); Leukocyte Esterase Urine Negative (Negative); Nitrate Urine Negative (Negative); Protein Urine Trace (Negative); Urine Appearance Clear (CLEAR); Urine Color Yellow (Yellow)
[2024-10-11 10:42] LABS: Basophils # 0.1 10^3/uL (0.0-0.1); Basophils % 0.9 %; Eosinophils # 0.5 10^3/uL (0.0-0.8); Eosinophils % 4.8 %; Hematocrit 42.2 % (36-47); Lymphocytes # 3.8 10^3/uL (0.8-4.8); Lymphocytes % 40.8 %; Mean Corpuscular Hemoglobin 29.3 pg (27-33); Mean Corpuscular Volume 91.7 fl (85-98); Mean Platelet Volume 10.5 fL (7.4-10.4); Monocytes # 0.7 10^3/uL (0.2-0.9); Monocytes % 7.8 %; Neutrophils # 4.25 10^3/uL (1.8-7.7); Neutrophils % 45.5 %; Nucleated Red Blood Cells % 0 %; Platelet Count 313 10^3/cmm (157-399); Red Cell Distribution Width 13.5 % (12.1-15.1); White Blood Count 9.34 10^3/uL (3.29-11.43)
[2024-10-11 10:50] LABS: Add Urine Microscopic? YES; Bacteria Urine TRACE /hpf; UA Manual Slide Review YES; WBC Urine 0-4 /hpf (0-5)
[2024-10-11 10:55] VITALS: BP 111/74; PULSE 79; RESP 18; O2SAT 98
[2024-10-11 11:05] VITALS: BP 111/74; O2SAT 99
[2024-10-11 11:08] LABS: HCG Quantitative < 1.00 mIU/mL
--- NOTE | 2024-10-11 11:15 | XR_ITS ---
WS: [id number] Right foot, 3 views, 10/11/2024 Clinical Data: pain Comparison: Right foot, 12/01/2020 Findings: No fractures or dislocations are seen. No bone destruction or erosion is noted. The joint spaces and soft tissues are normal. XR/XR foot RT min 3V* [id number] Impression: Negative right foot.
--- NOTE | 2024-10-11 11:15 | CT_ITS ---
WS: [id number] CT ABDOMEN PELVIS TECHNIQUE: Noncontrast CT of the abdomen and pelvis with coronal and sagittal reformatted images. CLINICAL INFORMATION: R sided back pain COMPARISON: 2020 DLP: 390.[address] scans at [facility] use at least one of these dose optimization techniques: automated exposure control; mA and/or kV adjustment per patient size (includes targeted exams where dose is matched to clinical indication); or iterative reconstruction. FINDINGS: Normal noncontrast liver. Normal GE junction. Slight atelectasis in the lung bases. Gallbladder is contracted. Normal noncontrast spleen. Adrenal glands are normal. No hydronephrosis in either kidney. Normal noncontrast pancreas. Normal caliber abdominal aorta. Tiny fat-containing umbilical hernia. No free fluid in the abdomen or pelvis. Retroverted uterus. Normal sigmoid colon. CT/CT kidney stone [id number] IMPRESSION: 1. No acute findings in the abdomen or pelvis. 2. No obstructing renal or ureteral calculi. 3. Normal appendix in the RIGHT lower quadrant.
--- NOTE | 2024-10-11 11:15 | W.ED.GENADLT ---
HPI - General Adult General: Chief complaint: Abdominal Pain Stated complaint: abd pain, R foot pain Time Seen by Provider: 10/11/24 09:49 Source: patient Mode of arrival: ambulatory Limitations: no limitations History of Present Illness: Patient is a 29-year-old female presents to ED today with multiple medical complaints. She states 2 weeks ago during intercourse, she developed significant pelvic/abdominal pain. She states pain was constant and severe and seemed to move around her abdomen depending on which side she was lying on. She states symptoms lasted approximately 2 days before subsiding. She states since then she feels like her pain has settled in her back and is now having pain to the right side of her back and flank. She feels like her pain is deep and internal . She is not complaining of dysuria, frequency, urgency. She is currently on her menstrual cycle. Patient states several weeks ago she had a spontaneous . She states she was approximately 5 weeks and that this was confirmed by [facility] at [facility] in [place]. Patient does not complain of nausea or vomiting or changes to her bowel movements. No fevers. She also has a complaint of right foot pain. She has a bony like knot to the dorsum of her right foot that her friends told her could be a bone spur. She states the area is now starting to bother her. Onset (ago): day(s) Relieving factors: none Exacerbating factors: none Associated symptoms: Deny chest pain, dyspnea, headache(s), malaise, nausea, rash or vomiting Treatments prior to arrival: none Related Data Home Medications ?Medication ?Instructions ?Recorded ?Confirmed No Known Home Medications 10/11/24 10/11/24 Allergies Allergy/AdvReac Type Severity Reaction Status Date / Time Alpha-Gal Allergy Unknown Verified 10/11/24 09:40 ([id number] Review of Systems Const: Denies: fever(s), chills, body aches, fatigue or malaise Card: Denies: chest pain Resp: Denies: dyspnea GI: Denies: abdominal pain, nausea, vomiting, diarrhea, GI cramping, hematochezia or melena : Reports: flank pain; Denies: difficulty voiding, dysuria, urinary frequency, urinary urgency, urinary hesitancy, vaginal discharge or pelvic pain Musc: Reports: back pain and extremity pain (R foot) Skin/Breast: Denies: rash Neuro: Denies: headache(s), numbness in extremities, weakness in extremities or sensory changes PFSH ED PFSH: Social History Smoking and tobacco/nicotine status: current every day tobacco/nicotine user cigarettes Packs smoked per day: 0.5 Alcohol intake: never Substance/Drug Use: never Physical Exam Const: COMMON NORMALS: no acute distress, average body habitus, patient oriented x3, no limitations, healthy appearing, alert and well nourished GENERAL APPEARANCE: cooperative HENMT: COMMON NORMALS: normocephalic and atraumatic HEAD & SCALP: normocephalic and atraumatic Eye: COMMON NORMALS: no scleral icterus Neck/C-Spine: COMMON NORMALS: full ROM, no lymphadenopathy, supple and no meningeal signs Chest: COMMONS NORMALS: normal inspection of the chest Resp: COMMON NORMALS: normal respiratory effort and clear to auscultation bilaterally AUSCULTATION: clear to auscultation bilaterally Cardio: COMMON NORMALS: regular rate and regular rhythm RATE: regular rate RHYTHM: regular rhythm GI: COMMON NORMALS: Normal to inspection, nondistended, normoactive bowel sounds present, Soft to palpation, non-tender, No hepatosplenomegaly present and no masses PALPATION: Yes Soft to palpation and Yes No hepatosplenomegaly present Back/Pelvis: COMMON NORMALS: thoracic and lumbar spine normal to inspection, thoraco-lumbar ROM normal and straight leg raise negative bilaterally THORACIC SPINE/UPPER BACK: Yes paraspinal muscle tenderness Thoracic paraspinal muscle tenderness: right BACK IMAGE (FEMALE):  1. TTP Extremity: COMMON NORMALS: normal to inspection GENERAL: Yes normal exam except as noted RIGHT LOWER EXTREMITY: Yes foot & digits (no abnormalities appreciated to R foot) Right foot and digits: Yes neurovascular exam (normal) Neuro: COMMON NORMALS: patient oriented x3, moves all extremities, no focal motor deficits and no sensory deficits noted SENSORIUM/ORIENTATION: Yes alert MENINGEAL SIGNS: Yes no meningeal signs Skin: COMMON NORMALS: no rashes or lesions noted GENERAL SKIN EXAM: no rashes or lesions noted Course Vital Signs: Vital signs: Vital Signs Temperature 98.5 F 10/11/24 09:32 Pulse Rate 79 10/11/24 10:55 Respiratory Rate 18 10/11/24 10:55 Blood Pressure 111/74 10/11/24 12:03 Pulse Oximetry 99 10/11/24 12:03 Oxygen Delivery Me thod Room Air 10/11/24 09:32 MDM - General Adult Medical Decision Making Patient here with several medical complaints. She was complaining of abdominal/pelvic pain after intercourse 2 weeks ago that persisted for approximately 2 days and then subsided. The pain has not returned. Clinically she has no abdominal or pelvic tenderness. She is currently on her menstrual cycle. She does report a spontaneous several weeks ago after being approximately 5 weeks . She states this was confirmed at [facility]. We tried to get these records but were unable. Her hCG here is less than 1.0. Again she has no abdominal or pelvic pain at this time. I do not have any suspicion for ectopic, retained products of conception, hemorrhagic cyst, or other concern at this time. She has some right sided back pain. CT scan of her abdomen and pelvis was unremarkable. She had a complaint of right foot pain. Her XR is normal. Clinically she appears in absolutely no acute distress with stable vital signs. Her blood work is unremarkable UA with 3+ blood consistent with her current menstrual cycle. Medical Records I reviewed the patient's medical records. Lab Data I reviewed the patient's lab results. 10/11/24 10:09 10/11/24 10:09 Radiology Impressions Abdomen/Pelvis CT 10/11/24 11:15 IMPRESSION: 1. No acute findings in the abdomen or pelvis. 2. No obstructing renal or ureteral calculi. 3. Normal appendix in the RIGHT lower quadrant. Foot X-Ray 10/11/24 11:15 Impression: Negative right foot. Laboratory Results WBC 9.34 10^3/uL (3.29-11.43) 10/11/24 10:09 RBC 4.60 10^6/uL (3.85-5.65) 10/11/24 10:09 Hgb 13.50 g/dL (11.27-16.99) 10/11/24 10:09 Hct 42.2 % (36-47) 10/11/24 10:09 MCV 91.7 fl (85-98) 10/11/24 10:09 MCH 29.3 pg (27-33) 10/11/24 10:09 MCHC 32.0 g/dL (30-55) 10/11/24 10:09 RDW 13.5 % (12.1-15.1) 10/11/24 10:09 Plt Count 313 10^3/cmm (157-399) 10/11/24 10:09 MPV 10.5 fL (7.4-10.4) H 10/11/24 10:09 Neut % (Auto) 45.5 % 10/11/24 10:09 Lymph % (Auto) 40.8 % 10/11/24 10:09 [place] % (Auto) 7.8 % 10/11/24 10:09 Eos % (Auto) 4.8 % 10/11/24 10:09 Baso % (Auto) 0.9 % 10/11/24 10:09 Neut # (Auto) 4.25 10^3/uL (1.8-7.7) 10/11/24 10:09 Lymph # (Auto) 3.8 10^3/uL (0.8-4.8) 10/11/24 10:09 [place] # (Auto) 0.7 10^3/uL (0.2-0.9) 10/11/24 10:09 Eos # (Auto) 0.5 10^3/uL (0.0-0.8) 10/11/24 10:09 Baso # (Auto) 0.1 10^3/uL (0.0-0.1) 10/11/24 10:09 Nucleated RBC % (auto) 0 % 10/11/24 10:09 Nucleated RBCs # 0.0 /100WBC 10/11/24 10:09 Sodium 137 mmol/L (136-145) 10/11/24 10:09 Potassium 3.5 mmol/L (3.5-5.1) 10/11/24 10:09 Chloride 103 mmol/L (98-107) 10/11/24 10:09 Carbon Dioxide 23 mmol/L (22-29) 10/11/24 10:09 Anion Gap 14.5 (5-19) 10/11/24 10:09 BUN 12 mg/dL (6-20) 10/11/24 10:09 Creatinine 0.6 mg/dL (0.5-0.9) 10/11/24 10:09 GFR Calculation 116.6 mL/min (90-130) 10/11/24 10:09 Glucose 63 mg/dL (65-115) L 10/11/24 10:09 Calculated Osmolality 282 mOsm/kg (285-295) L 10/11/24 10:09 Calcium 8.9 mg/dL (8.5-10.5) 10/11/24 10:09 Total Bilirubin 0.2 mg/dL (0.15-1.2) 10/11/24 10:09 AST 14 U/L (0-32) 10/11/24 10:09 ALT 15 U/L (0-33) 10/11/24 10:09 Alkaline Phosphatase 80 U/L (35-105) 10/11/24 10:09 Total Protein 7.1 g/dL (6.6-8.7) 10/11/24 10:09 Albumin 4.1 g/dL (3.5-5.2) 10/11/24 10:09 Globulin 3.0 g/dL (1.3-4.6) 10/11/24 10:09 Lipase 41 U/L (13-60) 10/11/24 10:09 Ser , Semi-Qnt < 1.00 mIU/mL 10/11/24 10:09 Urine Color Yellow (Yellow) 10/11/24 10:24 Urine Appearance Clear (CLEAR) 10/11/24 10:24 Urine pH 6.0 (5-7) 10/11/24 10:24 Ur Specific [place] 1.030 (1.005-1.030) 10/11/24 10:24 Urine Protein Trace (Negative) A 10/11/24 10:24 Urine Glucose (UA) Negative (Normal) 10/11/24 10:24 Urine Ketones Trace (Negative) 10/11/24 10:24 Urine Blood 3+ (Negative) A 10/11/24 10:24 Urine Nitrate Negative (Negative) 10/11/24 10:24 Urine Bilirubin Negative (Negative) 10/11/24 10:24 Urine Urobilinogen 1.0 mg/dL (Negative) 10/11/24 10:24 Ur Leukocyte Esterase Negative (Negative) 10/11/24 10:24 Urine RBC 5-10 /hpf (0-2) H 10/11/24 10:24 Urine WBC 0-4 /hpf (0-5) H 10/11/24 10:24 Ur Squamous Epith Cells 5-10 /hpf (0-5) H 10/11/24 10:24 Amorphous Sediment Not Reportable 10/11/24 10:24 Urine Bacteria Trace /hpf (NONE) 10/11/24 10:24 Hyaline Casts 5-10 /lpf H 10/11/24 10:24 All radiology interpretation(s) finalized by discharge Discharge Plan Discharge Patient Disposition: Home Clinical Impression: Right-sided thoracic back pain Qualifiers: Chronicity: acute Qualified Code(s): M54.6 - Pain in thoracic spine Condition: Stable Prescriptions: No Action No Known Home Medications Discharge Orders: Discharge ED (Routine); Ordered 10/11/24 Ordered By: Leonila Olivas Referrals: Bertin Craft DO [Primary Care Provider] - Activity Restrictions/Additional Instructions: As we discussed, your blood work here is unremarkable. Serum hCG was less than 1.0. Your UA does not appear infected. There was blood in this most likely consistent with your current menstrual cycle. As we discussed please follow-up with primary care for further evaluation. You may return to the emergency department at anytime for any further concerns you may have. Print Language: Romanian Coding Level of Care Code ED Director Of Estate for Smith Bragg
[2024-10-11 11:19] LABS: Alanine Aminotransferase 15 U/L (0-33); Albumin Level 4.1 g/dL (3.5-5.2); Alkaline Phosphatase 80 U/L (35-105); Anion Gap 14.5 (5-19); Aspartate Amino Transferase 14 U/L (0-32); Blood Urea Nitrogen 12 mg/dL (6-20); Calcium 8.9 mg/dL (8.5-10.5); Carbon Dioxide 23 mmol/L (22-29); Chloride 103 mmol/L (98-107); Creatinine Clr Calc Pharmacy 123.8516; Glomerular Filtration Rate 116.6 mL/min (90-130); Glucose 63 mg/dL (65-115); Lipase 41 U/L (13-60); Osmolality Calculated 282 mOsm/kg (285-295); Potassium 3.5 mmol/L (3.5-5.1); Sodium 137 mmol/L (136-145); Total Bilirubin 0.2 mg/dL (0.15-1.2); Total Protein 7.1 g/dL (6.6-8.7)
[2024-10-11 12:03] VITALS: BP 111/74; O2SAT 99
[2024-10-11 12:37] VITALS: BP 121/93; PULSE 65; RESP 18; O2SAT 98
== END 2024-10-11 12:38 | disposition home or self-care (01) ==
PROVIDERS: Emergency Provider Physician Assistant; PCP Family Medicine
DX: M54.6 Pain in thoracic spine (principal); F17.210 Nicotine dependence, cigarettes, uncomplicated
CPT/HCPCS: 36415; 73630; 74176; 80053; 81001; 83690; 84702; 85025; 99284

== ENCOUNTER 2025-02-04 09:46 | Emergency (ER) | payer BC, MEDICAID, SELFPAY ==
[2025-02-04 09:57] VITALS: BP 114/74; PULSE 79; RESP 18; TEMP 36.8; O2SAT 98
[2025-02-04 10:15] LABS: Bilirubin Urine Negative (Negative); Blood Urine Negative (Negative); Glucose Urine UA Negative (Normal); Ketones Urine Negative (Negative); Leukocyte Esterase Urine Negative (Negative); Nitrate Urine Negative (Negative); Protein Urine Negative (Negative); Urine Appearance Clear (CLEAR); Urine Color Yellow (Yellow); Urobilinogen Urine 0.2 mg/dL (Negative)
[2025-02-04 10:20] LABS: Add Urine Microscopic? YES; Bacteria Urine None Seen /hpf; Hyaline Casts Urine 0-4 /lpf; Squamous Epithelial Cell Urine 0-5 /hpf (0-5); WBC Urine 0-5 /hpf (0-5)
[2025-02-04 11:06] LABS: Basophils # 0.1 10^3/uL (0.0-0.1); Basophils % 0.4 %; Eosinophils # 0.1 10^3/uL (0.0-0.8); Lymphocytes # 4.3 10^3/uL (0.8-4.8); Lymphocytes % 30.9 %; Mean Corpuscular HGB Conc 33.2 g/dL (30-55); Mean Corpuscular Hemoglobin 29.4 pg (27-33); Mean Corpuscular Volume 88.7 fl (85-98); Mean Platelet Volume 10.8 fL (7.4-10.4); Monocytes % 7.3 %; Neutrophils # 8.26 10^3/uL (1.8-7.7); Nucleated Red Blood Cells % 0 %; Platelet Count 300 10^3/cmm (157-399); Red Blood Count 4.62 10^6/uL (3.85-5.65); Red Cell Distribution Width 14.4 % (12.1-15.1); White Blood Count 13.76 10^3/uL (3.29-11.43)
[2025-02-04 11:22] LABS: HCG, Serum Qual Negative (Negative)
[2025-02-04 11:23] LABS: Alanine Aminotransferase 23 U/L (0-33); Albumin Level 4.3 g/dL (3.5-5.2); Alkaline Phosphatase 82 U/L (35-105); Anion Gap 17.1 (5-19); Aspartate Amino Transferase 16 U/L (0-32); Blood Urea Nitrogen 12 mg/dL (6-20); Calcium 9.7 mg/dL (8.5-10.5); Carbon Dioxide 22 mmol/L (22-29); Chloride 99 mmol/L (98-107); Globulin 3.1 g/dL (1.3-4.6); Glomerular Filtration Rate 116.6 mL/min (90-130); Glucose 85 mg/dL (65-115); Lipase 23 U/L (13-60); Osmolality Calculated 277 mOsm/kg (285-295); Potassium 4.1 mmol/L (3.5-5.1); Sodium 134 mmol/L (136-145); Total Bilirubin 0.2 mg/dL (0.15-1.2); Total Protein 7.4 g/dL (6.6-8.7)
== END 2025-02-04 12:51 | disposition left against medical advice (07) ==
PROVIDERS: Physician Assistant; Emergency Provider Family Medicine
DX: Z01.89 Encounter for other specified special examinations (principal); Z53.21 Procedure and treatment not carried out due to patient leaving prior to being seen by health care provider
CPT/HCPCS: 36415; 80053; 81001; 83690; 84703; 85025

== ENCOUNTER 2025-02-05 08:03 | Emergency (ER) | payer BC, MEDICAID, SELFPAY ==
--- OUTSIDE RECORDS SUMMARY | 2023-06-27 11:00 | XMS_ITS | Continuity of Care Document ---
Author Organization [facility] Address [address] [id number] [address] Phone Care Team Providers Care Gold Layer Name Role Phone Pratik Hubbard DDS Unavailable Unavailable Allergies, Adverse Reactions, Alerts Substance Reaction Status Criticality No Known Allergies Active No Inform ation Medications Medication Instructions Dosage Effective Dates (start - stop) Status Comments amoxicillin 500 mg capsule take 1 capsule by oral route every 8 hours 500 MG - Active Procedures Procedure Date Resin-Based Composite Three Surfaces, Anterior Resin-Based Composite Three Surfaces, Anterior EDR Approval Note Intraoral Periapical First Film Intraoral Periapical Each Additional Film Resin-Based Composite Three Surfaces, Posterior Resin-Based Composite Four Or More Surfaces Or I EDR Approval Note Prophylaxis Adult Comprehensive Oral Evaluatio n New Or Established Caries High Risk Exempt From Sealant Measure Intraoral Periapical First Film Intraoral Periapical Each Additional Film Intraoral Periapical Each Additional Film Intraoral Periapical Each Additional Film Intraoral Periapical Each Additional Film Intraoral Periapical Each Additional Film Intraoral Periapical Each Additional Film Panoramic Film EDR Approval Note Limited Oral Evaluation Problem Focused May-29-2023 Extraction, Erupted Tooth Or Exposed Ness t (Elevati Extraction, Erupted Tooth Or Exposed Ness t (Elevati Intraoral Periapical First Film Limited Oral Evaluation Problem Focused Intraoral Periapical First Film Extraction, Erupted Tooth Or Exposed Ness t (Elevati Limited Oral Evaluation Problem Focused Extraction, Erupted Tooth Or Exposed Ness t (Elevati Advance Directives Directive Yes / No Effective Date File Name No Information Encounters Encounter Description Practice Location Reason(s) For Visit Diagnoses Date Provider Providers Copied on Encounter [facility], [id number], [id number], [place] tel:[phone] [facility] Encounter for dental exam and cleaning w/o abnormal findings Haydee Christie. [address] [place], [address], [place]. tel:[phone] Referring Provider: Pratik Hubbard, [address] [place], [address]. tel:[phone] [facility], [id number] [place], [id number], [place] tel:[phone] [facility] Encounter for dental exam and cleaning w/o abnormal findings Haydee Christie. [address] [place], [address], [place]. tel:[phone] Referring Provider: Pratik Hubbrad, [address] [place], [address]. tel:[phone] [facility], [id number] [id number], [id number], [place] tel:[phone] [facility] Encounter for dental exam and cleaning w/o abnormal findings Christin Vieira. [address] [place], [address], [place]. tel:[phone] Referring Provider: Isha Waller, [address] [place], [address]. tel:[phone] [facility], [id number] [place], [id number], [place] [phone] [facility] Encounter for dental exam and cleaning w/o abnormal findings Haydee Christie. [address] [place], [address], [place]. tel:[phone] Referring Provider: Pratik Hubbard, [address] [place], [address]. tel:[phone] [facility], [id number] [place], [id number], [place] tel:[phone] [facility] Encounter for dental exam and cleaning w/o abnormal findings Sreedhar Gonzales. [address] [place], [place], [address], [place]. tel:[phone] Referring Provider: Christian Eli, [address] [place], [address]. tel:[phone] [facility], [id number] [id number], [address], [place] tel:[phone] [facility] No Information Sreedhar Gonzales. [address] [place], [place], [id number], [place]. tel:[phone] Referring Provider: Christian Eli, [address] [place], [address]. tel:[phone] [facility], [id number] [id number], [address], [place] tel:[phone] [facility] No Information Cara Jones. [address] [facility] [facility] [place] [id number], [place]. tel:[phone] Referring Provider: Karen Marroquin, [address] [place], [address]. tel:[phone] Family History Family Member Type Diagnosis Age At Onset No Information Payers Payer name Insurance type Covered constitution party ID Authordee rivera(s) D [employer] [id number] Social History Type Description Quantity Date Captured Comments Alcohol Use Details No Caffeine Use Details Unknown Tobacco Use Status Smoking Status No Information Sex Female Gender Identity Declined To Specify Chief Complaint And Reason For Visit No Information Reason For Referral Reason For Referral No Information Plan Of Treatment Date Type Action Status Goal Tobacco cessation counseling completed History Of Present Illness Encounter Date Complaint History Of Prese nt Illness No Information Functional Status Date Functional Assessmen t No Information Instructions Date Instruction Additional Infor maya Lifestyle education Related to D ental Examination Lifestyle education Related to D ental Examination Assessments Type Assessment Date No Information Patient Care Teams Name Effective Dates (start - stop) Status Members No Information
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
--- OUTSIDE RECORDS SUMMARY | 2025-02-05 08:15 | XMS_ITS | Patient Health Record ---
Author Organization [facility] Address [address] [place], [place] [id number] Care Team Providers Care Pin Drafting Machine Operator Name Role Phone Vance ONEILL, Sesar Primary Care Provider Mac Lane MD, Percy Unavailable [phone] Allergies No Known Allergies Reason For Referral No Information Medications Medication SIG (Take, Route, Fr equency, Duration) Notes Start Date End Date Status ibuprofen 200 mg 2 tabs po orally TID prn pain; take with food Active Social History Tobacco Use: Social History Observation Description Date Details (start date - stop date) Current Smoker NA - NA alcohol Question Answer Notes Did you have a drink containing alcohol in the p ast year? No Points 0 Interpretation Negative Tobacco use: Question Answer Notes : current smoker Are you interested in quitting? Not ready to chauncey t How many cigarettes a day do you smoke? 6-10 How often do you smoke cigarettes? every day How soon after you wake up d o you smoke your first cigarette? 6-30 min When did you start smoking? 15 y ears Problems Problem Type SNOMED Code ICD Code Onset Dates Problem Status W/U Status Risk Notes Problem Anxiety disorder (814497029) Other specified anxiety disorders (F41.8) Active confirmed Problem Sleep disorder (64639805) Other sleep disorders (G47.8) Active confirmed Problem Cervical spondylosis without myelopathy (907873591) Spondylosis without myelopathy or radiculopathy, cervical region (M47.812) Active confirmed Problem Cervical radiculopathy (16483532) Cervical disc disorder with radiculopathy, unspecified cervical region (M50.10) Active confirmed Problem Cervicalgia (28402239) Cervicalgia (M54.2) Active confirmed Problem Long-term current use of drug therapy (741152585) Other detention (current) drug therapy (Z79.899) Active confirmed Problem Myalgia (80743007) Myalgia of auxiliary muscles, head and neck (M79.12) Active confirmed Plan Of Treatment No Information Insurance Providers Payer Name Payer Address Payer Phone Subscriber Number Group Number Insured Name Patient Relationship to Insured Coverage Start Date Coverage End Date ESTELA MARTINEZ [id number] [facility] [address] [place] [address] [id number] Kimberly Abdalla Self - patient is the insured Medical (General) History Medical History History ICD Code Neck pain Low back pain Mid back pain Migraine headaches Left closed nondisplaced fracture of 5th metacarpal Depression Chest wall pain Pyelonephritis Epileptic seizure Costochondritis COVID-19 (10/2020) Surgical History Surgery Date(Month/Year) Tonsillectomy Vaginal episiotomy, scar revision, perfo rmed at [facility] by Dr. Diamond, 11/14/18 Hospitalization History Reason Date(Month/Year) Child , 2012, 2014
--- OUTSIDE RECORDS SUMMARY | 2025-02-05 08:15 | XMS_ITS | Data Portability ---
Author Organization [facility] Address [address] [place] [address] Assessment Encounter Date Assessment Date Assessment LastModified by Organization Details LastModified Time 02/15/2023 02/15/2023 Discussed taking antifungal medication daily until completed Discussed taking antibiotic daily as prescribed until completed Stop taking prior prescribed amoxicillin Do not drink alcohol or take tylenol while on medication Increase PO intake of water Patient had lab work done on in January of 2023 by PCP at [facility] and was able to show results - liver and renal labs WNL. Do not soak foot in standing water Do not apply any more OTC creams or ointments to the area Avoid hot and cold compresses to the area Keep area covered to protect from increased infection Discussed importance of following up with PCP or at the walk-in clinic in 1 week. Return to clinic if any worsening, any concerns, any changes Patient verbalized understanding of plan [email or web address] Not available 02/15/2023 20:04:16 10/12/2023 10/12/2023 Patient presente d with symptoms of viral upper respiratory infection. Advised to drink plenty of fluids, run a cool-mist humidifier in room at night, gargle salt water for sore throat, and get plenty of rest. Patient should avoid over-exertion and reduce exposure to irritants such as smoke, cold, dry air, and dust. Treatment currently involves symptomatic relief. Patient may take acetaminophen or ibuprofen as directed to reduce fever and body aches. Antihistamine and decongestant usage was discussed and recommendations made. Patient understood these instructions and will follow up in the office in 7-10 days if symptoms not improving. [email or web address] Not available 10/12/2023 11:12:40 Plan of Treatment Reminders Order Date Submit Date Provider Last Modified By Organization Details Last Modified Time Details Appointments None recorded. Lab None recorded. Referral None recorded. Procedures None recorded. Surgeries None recorded. Imaging None recorded. Medication Orders terbinafine HCl 250 mg tablet 2022 024 [id number], [address], [place], [place], [id number], 4 11:15:43 Bactrim DS 800 mg-160 mg tablet [id number] [place] [address] [facility], [address], [place], [place], [id number], 4 11:12:29 Patient TargetsNo targets recorded. Patient InstructionsNo instructions recorded. Reason for Referral None Reported. Problems Name Problem SNOMED Code Status Onset Date Resolution Date Notes Provider Name and Address Organization Details Recorded Time Tonsillectomy Active 2020 Tonsill ectomy; 021 2:42PM by Padma Rivera, Office Visit; Promote d; acuity set as *; Not Available Counts include 234 beds at the [facility] 3 03:13:12 Problem Notes None recorded. Medical Equipment None Reported. Allergies No known drug allergies Medications Name Sig Start Date Stop Date Status Note LastModified by Organization Details LastModified Time amoxicillin 500 mg capsule TAKE 1 CAPSULE BY MOUTH EVERY 8 HOURS completed Not Available Not Available Not Available promethazine -DM 6.25 mg-15 mg/5 mL oral syrup TAKE 5 ML BY MOUTH EVERY 4 HOURS NEEDED FOR COUGH completed Not Available Not Available Not Available venlafaxine ER 37.5 mg capsule,exte nded release 24 hr completed Not Available Not Available Not Available venlafaxine ER 75 mg capsule,exte nded release 24 hr completed Not Available Not Available Not Available hydrocodone 5 mg-acetamino phen 325 mg tablet TAKE 1 TABLET BY MOUTH EVERY 6 HOURS NEEDED FOR PAIN completed Not Available Not Available Not Available venlafaxine ER 150 mg capsule,exte nded release 24 hr completed Not Available Not Available Not Available sulfamethoxa zole 800 mg-trimethop rim 160 mg tablet TAKE 1 TABLET BY MOUTH EVERY 12 HOURS FOR 10 DAYS completed Not Available Not Available Not Available terbinafine HCl 250 mg tablet Take 1 tablet every day by oral route for 14 days. 2022 completed Not Available Not Available Not Available sertraline 50 mg tablet completed Not Available Not Available Not Available amoxicillin 875 mg-potassium clavulanate 125 mg tablet TAKE 1 TABLET BY MOUTH EVERY 12 HOURS FOR 10 DAYS completed Not Available Not Available Not Available aripiprazole 5 mg tablet completed Not Available Not Available Not Available bupropion HCl XL 150 mg 24 hr tablet, extended release TAKE 1 TABLET BY MOUTH EVERY MORNING completed Not Available Not Available Not Available Vitals Date Recorded Body height Body mass index (BMI) Body weight Oxygen saturation Oxygen saturation in Arterial blood by Pulse oximetry Heart rate Body temperature Systolic blood pressure Diastolic blood pressure Provider Name and Address Organization Details Last Updated DateTime 4 160.02 cm 24.4 kg/m2 12715.7 5 g 96 % 96 % 111 /min 98.6 [degF] 100 mm[Hg] 70 mm[Hg] PADMA RIVERA [facility] 4 11:15:11 Date Recorded Body height Body mass index (BMI) Body weight Oxygen saturation Oxygen saturation in Arterial blood by Pulse oximetry Heart rate Respiratory rate Body temperature Systolic blood pressure Diastolic blood pressure Provider Name and Address Organization Details Last Updated DateTime 3 160.02 cm 26 kg/m2 93668.0 8 g 97 % 97 % 100 /min 19 /min 97.5 [degF] 120 mm[Hg] 81 mm[Hg] GILDARDO BERNAL [facility] 3 19:36:17 Social History None recorded. Functional Status None recorded. Mental Status None recorded. Family History Nothing Reported. Medical History No medical history recorded. Gynecological HistoryNo gynecological history recorded. Obstetrics History GPAL:G 0 P 0 0 0 0 Immunizations Vaccine Type Date Status Note Provider Nam e and Address Organization Details Recorded Time HPV9 7 completed PADMA RIVERA null, [facility] 10/12/2023 11:11:28 HPV9 6 completed PADMA RIVERA null, [facility] 10/12/2023 11:11:28 MMR 7 completed PADMA RIVERA null, [facility] 10/12/2023 11:11:28 Tdap 7 completed PADMA RIVERA null, [facility] 10/12/2023 11:11:28 polio, unspecified formulation 7 completed PADMA RIVERA null, [facility] 10/12/2023 11:11:28 polio, unspecified formulation 7 completed PADMA RIVERA null, [facility] 10/12/2023 11:11:28 DTP-Hib 7 completed PADMA RIVERA null, [facility] 10/12/2023 11:11:28 DTP-Hib 7 completed PADMA RIVERA null, [facility] 10/12/2023 11:11:28 HPV, quadrivalent 9 completed PADMA RIVERA null, [facility] 10/12/2023 11:11:29 DTaP 9 completed PADMA RIVERA null, [facility] 10/12/2023 11:11:29 Past Encounters Encounter ID Performer Location Encounter Start Date Encounter Closed Date Diagnosis/Indication Diagnosis SNOMED-CT Code Diagnosis ICD10 Code Diagnosis Note [id number] PENG BARTHOLOMEW [facility] ([facility]) [address] [place] [phone] 02/15/2023 18:59:25 02/27/2023 13:40:23 Cellulitis of toe of left foot [id number] 7473640 L03.032 Tinea pedis 5356645 B35. 3 [id number] Paulo Siegel MD [facility] [address] [place] [address] 10/12/2023 10:57:02 10/12/2023 12:09:05 Upper respiratory infection 86613267 J06.9 Health Concerns Section Related Observation LastModified by Organization Detai ls LastModified Time None Recorded Concern Status LastModified by Organization Details LastModified Time None Recorded Advance Directives Directive None Recorded Payers Insurance Date Sequence Insurance Name Policy Number Policy Purvis Covered Member ID Purvis Member ID Guarantor Name 09/04/2024 1 [employer] [place] (MEDICAID REPLACEMENT - HMO) [id number] Kimberly Abdalla [id number] Kimberly Abdalla Notes Date Note Type Note Provider Name and Address Organization Details Recorded Time 02/15/2023 text/html General Rash/Ski n LesionReported bypatient.Location:fee t Quality:itchy;painful; weeping;red Severity:moderate; worsening Duration:has noted for <1 week Onset/Timing:abrupt onset Context:no one else with similar rash;scratching Associated Symptoms:no fever; no cold symptoms; no nausea; no vomiting; no diarrhea 27 y/o female presents to walk-in clinic with complaints of redness, odor, purulent drainage, white areas, swelling to the left foot toes 3-5 x 1 week. Reports she thought it was athlete's foot and has been using OTC creams. Reports body aches, chills, nausea. Reports she woke up this morning with pain, warmth and tenderness to the left medial thigh and right axilla but has no open areas in these locations. Reports she has been taking Amoxicillin for symptoms. Reports she had lab work done at her PCP at [facility] in [place] in January of 2023. PENG BARTHOLOMEW [address] [place], [address], [facility] [place] 02/15/2023 20:21:50 10/12/2023 text/html Upper Respirator y SymptomsReported bypatient.Location:[address]; nasal Quality:congested;dry cough Associated Symptoms:no fever; no chills;fatigue(weaknes s.) Paulo Siegel MD [address] [place] [address], [phone], [facility] [place] 10/15/2023 10:34:12 OBGyn Episode No OBEpisode recorded.
[2025-02-05 08:19] VITALS: BP 117/81; PULSE 99; RESP 12; TEMP 36.9; O2SAT 99; BMI 28.3
[2025-02-05 08:57] LABS: Basophils # 0.1 10^3/uL (0.0-0.1); Basophils % 0.6 %; Hematocrit 42.2 % (36-47); Mean Corpuscular HGB Conc 32.9 g/dL (30-55); Neutrophils % 54.3 %; Nucleated Red Blood Cells % 0 %; Red Cell Distribution Width 14.6 % (12.1-15.1)
[2025-02-05 08:59] LABS: Eosinophils # 0.3 10^3/uL (0.0-0.8); Eosinophils % 2.3 %; Lymphocytes # 4.3 10^3/uL (0.8-4.8); Lymphocytes % 34.9 %; Mean Corpuscular Hemoglobin 29.8 pg (27-33); Mean Corpuscular Volume 90.6 fl (85-98); Mean Platelet Volume 10.4 fL (7.4-10.4); Monocytes # 0.9 10^3/uL (0.2-0.9); Monocytes % 7.6 %; Neutrophils # 6.68 10^3/uL (1.8-7.7); Platelet Count 290 10^3/cmm (157-399); Red Blood Count 4.66 10^6/uL (3.85-5.65)
[2025-02-05 09:09] LABS: HCG, Serum Qual Negative (Negative)
[2025-02-05 09:14] LABS: Slide Review Slide Review Perform
[2025-02-05 09:20] LABS: Lactic Sepsis W/Reflex 1.9 mmol/L (0.5-2.2)
[2025-02-05 09:21] LABS: Alanine Aminotransferase 22 U/L (0-33); Albumin Level 4.3 g/dL (3.5-5.2); Alkaline Phosphatase 79 U/L (35-105); Anion Gap 15.9 (5-19); Aspartate Amino Transferase 17 U/L (0-32); Blood Urea Nitrogen 12 mg/dL (6-20); Calcium 9.2 mg/dL (8.5-10.5); Carbon Dioxide 25 mmol/L (22-29); Chloride 100 mmol/L (98-107); Creatinine Clr Calc Pharmacy 129.6886; Globulin 3.1 g/dL (1.3-4.6); Glomerular Filtration Rate 116.6 mL/min (90-130); Glucose 77 mg/dL (65-115); Osmolality Calculated 283 mOsm/kg (285-295); Potassium 3.9 mmol/L (3.5-5.1); Sodium 137 mmol/L (136-145); Total Bilirubin 0.3 mg/dL (0.15-1.2); Total Protein 7.4 g/dL (6.6-8.7)
[2025-02-05 09:21] LABS: Bilirubin Urine Negative (Negative); Blood Urine Negative (Negative); Glucose Urine UA Negative (Normal); Ketones Urine Negative (Negative); Leukocyte Esterase Urine Negative (Negative); Nitrate Urine Negative (Negative); Protein Urine Negative (Negative); Urine Appearance Clear (CLEAR); Urine Color Yellow (Yellow); pH Urine 6.5 (5-7)
[2025-02-05 09:26] LABS: Bacteria Urine None Seen /hpf; Hyaline Casts Urine 0-4 /lpf; WBC Urine 0-5 /hpf (0-5)
[2025-02-05 09:27] LABS: Amphetamines Screen Urine Negative (Negative); Barbiturates Screen Urine Negative (Negative); Benzodiazepines Screen Urine Negative (Negative); Cocaine Screen Urine Negative (Negative); Opiate Screen Urine Negative (Negative); PCP Screen Urine Negative (Negative); THC Screen Urine Negative (Negative)
--- NOTE | 2025-02-05 09:45 | CT_ITS ---
WS: [id number] CT ABDOMEN AND PELVIS WITH CONTRAST HISTORY: Abdominal pain, RIGHT upper quadrant pain with bloating and weight gain. TECHNIQUE: Imaging performed of the abdomen and pelvis with IV contrast. Single phase imaging of the abdomen. Coronal and sagittal reformats are submitted. All CT scans at [facility] use at least one of these dose optimization techniques: automated exposure control; mA and/or kV adjustment per patient size (includes targeted exams where dose is matched to clinical indication); or iterative reconstruction. IV CONTRAST: Omnipaque 350; 100 mL IV. Oral contrast: No DLP: 468.08 mGy.cm COMPARISON: 10/11/2024 Lower thorax: Lung bases are clear. Heart is normal size. No hiatal hernia. Liver/biliary system: Normal size with no intrahepatic dilatation. Gallbladder: Normal. No gallstones or wall thickening. No pericholecystic fluid. Pancreas: Normal size pancreas and pancreatic duct. No adjacent inflammation. Spleen: Normal size spleen. No mass or infarct. Adrenal glands: Normal. Right kidney: Normal. Left kidney: Normal. Aorta: Normal. Lymphadenopathy: None. Free fluid: Small amount of physiologic free fluid in the pelvis. GI tract: No GI tract obstruction. Normal appendix. No colitis. Abdominal wall: Small ventral abdominal wall hernia contains fat only. Pelvis: Uterus is midline. Both ovaries are identified. Peripherally enhancing mass RIGHT ovary measures 3.3 x 1.8 cm and is consistent with a collapsing ovarian cyst. There is a small amount of free fluid in the pelvis associated with this involuting cyst. Also noted are prominent bilateral ovarian veins and prominent periuterine veins. Bones: Unremarkable. CT/CT abdomen pelvis w con* [id number] IMPRESSION: 1. Normal appendix. 2. No GI tract obstruction. 3. No renal obstruction. 4. Collapsing RIGHT ovarian cyst measuring 3.3 x 1.8 cm with surrounding adjac ent free fluid. 5. Pelvic venous congestion syndrome.
--- NOTE | 2025-02-05 10:04 | ED_ITS ---
HPI - Abdominal Pain 2 General: Chief Complaint: Abdominal Pain Stated Complaint: abdominal pain Time Seen by Provider: 02/05/25 09:43 History of Present Illness: 29-year-old female who presents emergenc y room with right-sided abdominal pain. She says it is sharp and intermittent. Been going on for about 2 weeks. She is never had anything like this before. Chest pain is worse after intercourse. No nausea or vomiting. No fevers. Her mother is with her and says that she was crying all night long and so she had to come to the emergency room for evaluation. No vaginal discharge. No dysuria. Currently the patient is pain- free Related Data Date of Last Menstrual Period: 12/26/24 Previous Rx's ?Medication ?Instructions ?Recorded diclofenac sodium 50 mg 50 mg PO BID PRN pain #14 ta bs 02/05/25 tablet,delayed release tramadol 50 mg tablet 50 mg PO Q8H PRN pain #10 ta bs 02/05/25 Allergies Allergy/AdvReac Type Severity Reaction Status Date / Time Alpha-Gal Allergy Unknown Verified 10/11/24 09:40 ([id number],3-Gala Review of Systems 2 Narrative: Constitutional symptoms: Negative except as documented in HPI. Skin symptoms: Negative except as documented in HPI. Eye symptoms: Negative except as documented in HPI. ENMT symptoms: Negative except as documented in HPI. Respiratory symptoms: Negative except as documented in HPI. Cardiovascular symptoms: Negative except as documented in HPI. Gastrointestinal symptoms: Negative except as documented in HPI. Genitourinary symptoms: Negative except as documented in HPI. Musculoskeletal symptoms: Negative except as documented in HPI. Neurologic symptoms: Negative except as documented in HPI. Psychiatric symptoms: Negative except as documented in HPI. Endocrine symptoms: Negative except as documented in HPI. PFSH ED 2 PFSH: Social History Smoking and tobacco/nicotine status: current every day tobacco/nicotine user cigarettes Packs smoked per day: 0.5 Alcohol intake: never Substance/Drug Use: never Female Reproductive History: Date of last menstrual period: 12/26/24 Physical Exam 2 Narrative: EXAM NARRATIVE: General: Alert, no acute distress. Skin: Warm, dry. Head: Normocephalic, atraumatic. Neck: Supple, trachea midline. Eye: Extraocular movements are intact. Ears, nose, mouth and throat: mucosa moist. Cardiovascular: Regular, Normal peripheral perfusion. Respiratory: Lungs are clear to auscultation, respirations are non-labored, breath sounds are equal, Symmetrical chest wall expansion. Gastrointestinal: Soft, Nontender, Non distended Musculoskeletal: Normal ROM, no deformity. Neurological: Alert and oriented, No focal neurological deficit observed. Psychiatric: Cooperative, appropriate mood & affect. Course 2 Vital Signs: Vital signs: Vital Signs Temperature 98.5 F 02/05/25 08:19 Pulse Rate 99 02/05/25 08:19 Respiratory Rate 12 02/05/25 08:19 Blood Pressure 117/81 02/05/25 08:19 Pulse Oximetry 99 02/05/25 08:19 Oxygen Delivery Me thod Room Air 02/05/25 08:19 MDM - Abdominal Pain Medical Decision Making Medical decision making: Differential diagnosis for this patient with right lower quadrant abdominal pain including but not limited to and based on the above HPI, review of systems and physical exam: Ureterolithiasis. Urinary tract infection. Appendicitis. colitis. small bowel obstruction. Crohn's flare. Pancreatitis. Cholelithiasis or cholecystitis. Hepatitis. Diverticulitis. Constipation. ovarian cyst. ovarian torsion Workup: Orders were placed to evaluate differential diagnosis based on the above differential, HPI and exam: Lab Review: Laboratory results were reviewed and interpreted by myself the emergency room physician. Mild leukocytosis. No anemia. No renal failure. No evidence of urinary tract infection. CT of the abdomen pelvis with contrast: Right ovarian cyst and some surrounding fluid. Likely the cause of her pain. She also has some venous congestion. This was reviewed and interpreted by myself the emergency room physician. I also reviewed the radiology report. I reviewed the patient's medical record Reexamination: Patient remained stable. No increased work of breathing. No altered mental status. No focal motor deficits. Assessment and plan: Ovarian cyst Pelvic venous congestion syndrome - Discharged home - Discussed plan with patient. Answered any questions. - Evaluation and treatment of this problem were appropriate in the emergency setting. Lab Data 02/05/25 08:51 02/05/25 08:51 Labs/Radiology: Radiology Impressions Abdomen/Pelvis CT 02/05/25 09:45 IMPRESSION: 1. Normal appendix. 2. No GI tract obstruction. 3. No renal obstruction. 4. Collapsing RIGHT ovarian cyst measuring 3.3 x 1.8 cm with surrounding adjacent free fluid. 5. Pelvic venous congestion syndrome. Laboratory Results WBC 12.30 10^3/uL (3.29-11.43) H 02/05/25 08:51 RBC 4.66 10^6/uL (3.85-5.65) 02/05/25 08:51 Hgb 13.90 g/dL (11.27-16.99) 02/05/25 08:51 Hct 42.2 % (36-47) 02/05/25 08:51 MCV 90.6 fl (85-98) 02/05/25 08:51 MCH 29.8 pg (27-33) 02/05/25 08:51 MCHC 32.9 g/dL (30-55) 02/05/25 08:51 RDW 14.6 % (12.1-15.1) 02/05/25 08:51 Plt Count 290 10^3/cmm (157-399) 02/05/25 08:51 MPV 10.4 fL (7.4-10.4) 02/05/25 08:51 Neut % (Auto) 54.3 % 02/05/25 08:51 Lymph % (Auto) 34.9 % 02/05/25 08:51 [place] % (Auto) 7.6 % 02/05/25 08:51 Eos % (Auto) 2.3 % 02/05/25 08:51 Baso % (Auto) 0.6 % 02/05/25 08:51 Neut # (Auto) 6.68 10^3/uL (1.8-7.7) 02/05/25 08:51 Lymph # (Auto) 4.3 10^3/uL (0.8-4.8) 02/05/25 08:51 [place] # (Auto) 0.9 10^3/uL (0.2-0.9) 02/05/25 08:51 Eos # (Auto) 0.3 10^3/uL (0.0-0.8) 02/05/25 08:51 Baso # (Auto) 0.1 10^3/uL (0.0-0.1) 02/05/25 08:51 Nucleated RBC % (auto) 0 % 02/05/25 08:51 Nucleated RBCs # 0.0 /100WBC 02/05/25 08:51 Sodium 137 mmol/L (136-145) 02/05/25 08:51 Potassium 3.9 mmol/L (3.5-5.1) 02/05/25 08:51 Chloride 100 mmol/L (98-107) 02/05/25 08:51 Carbon Dioxide 25 mmol/L (22-29) 02/05/25 08:51 Anion Gap 15.9 (5-19) 02/05/25 08:51 BUN 12 mg/dL (6-20) 02/05/25 08:51 Creatinine 0.6 mg/dL (0.5-0.9) 02/05/25 08:51 GFR Calculation 116.6 mL/min (90-130) 02/05/25 08:51 Glucose 77 mg/dL (65-115) 02/05/25 08:51 Calculated Osmolality 283 mOsm/kg (285-295) L 02/05/25 08:51 Lactic Acid 1.9 mmol/L (0.5-2.2) 02/05/25 08:51 Calcium 9.2 mg/dL (8.5-10.5) 02/05/25 08:51 Total Bilirubin 0.3 mg/dL (0.15-1.2) 02/05/25 08:51 AST 17 U/L (0-32) 02/05/25 08:51 ALT 22 U/L (0-33) 02/05/25 08:51 Alkaline Phosphatase 79 U/L (35-105) 02/05/25 08:51 C-Reactive Protein 3.0 mg/L (0.0-4.9) 02/05/25 08:51 Total Protein 7.4 g/dL (6.6-8.7) 02/05/25 08:51 Albumin 4.3 g/dL (3.5-5.2) 02/05/25 08:51 Globulin 3.1 g/dL (1.3-4.6) 02/05/25 08:51 HCG, Qual Negative (Negative) 02/05/25 08:51 Urine Color Yellow (Yellow) 02/05/25 09:04 Urine Appearance Clear (CLEAR) 02/05/25 09:04 Urine pH 6.5 (5-7) 02/05/25 09:04 Ur Specific [place] 1.020 (1.005-1.030) 02/05/25 09:04 Urine Protein Negative (Negative) 02/05/25 09:04 Urine Glucose (UA) Negative (Normal) 02/05/25 09:04 Urine Ketones Negative (Negative) 02/05/25 09:04 Urine Blood Negative (Negative) 02/05/25 09:04 Urine Nitrate Negative (Negative) 02/05/25 09:04 Urine Bilirubin Negative (Negative) 02/05/25 09:04 Urine Urobilinogen 1.0 mg/dL (Negative) 02/05/25 09:04 Ur Leukocyte Esterase Negative (Negative) 02/05/25 09:04 Urine RBC 3-5 /hpf (0-2) 02/05/25 09:04 Urine WBC 0-5 /hpf (0-5) 02/05/25 09:04 Ur Squamous Epith Cells 6-10 /hpf (0-5) 02/05/25 09:04 Amorphous Sediment Not Reportable 02/05/25 09:04 Urine Bacteria None seen /hpf (NONE) 02/05/25 09:04 Hyaline Casts 0-4 /lpf H 02/05/25 09:04 Urine Opiates Screen Negative ng/mL (Negative) 02/05/25 09:04 Ur Barbiturates Screen Negative ng/mL (Negative) 02/05/25 09:04 Ur Phencyclidine Scrn Negative ng/mL (Negative) 02/05/25 09:04 Ur Amphetamines Screen Negative ng/mL (Negative) 02/05/25 09:04 U Benzodiazepines Scrn Negative ng/mL (Negative) 02/05/25 09:04 Urine Cocaine Screen Negative ng/mL (Negative) 02/05/25 09:04 U Marijuana (THC) Screen Negative ng/mL (Negative) 02/05/25 09:04 All radiology interpretation(s) finalized by discharge Discharge Plan Discharge Patient Disposition: Home Clinical Impression: Ovarian cyst, Pelvic congestion Condition: Stable Prescriptions: New tramadol 50 mg tablet 50 mg PO Q8H PRN (Reason: pain) Qty: 10 0RF diclofenac sodium 50 mg tablet,delayed release (DR/EC) 50 mg PO BID PRN (Reason: pain) Qty: 14 0RF Discharge Orders: Discharge ED (Routine); Ordered 02/05/25 Ordered By: Stephanie Armijo Referrals: Jasmina Fry DO [Physician, COMIC ARTIST] Referral Note: Please call for follow-up appointment with Dr. Fry or the detail sergeant of your choosing. Discharge Diet: Usual diet Discharge Activity: Increase activity as tolerated Patient Instructions: Ovarian Cyst (ED), Opioid Safety, Pain Management, Patient Portal & Mansoor Instructions Activity Restrictions/Additional Instructions: Thank you for choosing [facility] for your healthcare needs today. You have been screened and evaluated and felt safe for discharge. Health conditions do change or evolve sometimes and as such it is important that you follow up with your Primary Doctor to be re checked, 3-5 days is a general good time frame for follow up. 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
[2025-02-05] MEDS: iohexol 350 mg/mL 500 mL Btl (per mL) IV (10:09)
[2025-02-05 11:12] VITALS: BP 113/92; PULSE 68; O2SAT 100
[2025-02-05 11:27] VITALS: BP 113/92; PULSE 68; O2SAT 100
== END 2025-02-05 11:30 | disposition home or self-care (01) ==
PROVIDERS: Emergency Provider Emergency Medicine
DX: N83.291 Other ovarian cyst, right side (principal); N94.89 Other specified conditions associated with female genital organs and menstrual cycle; F17.210 Nicotine dependence, cigarettes, uncomplicated
CPT/HCPCS: 36415; 74177; 80053; 80306; 81001; 83605; 84703; 85025; 86140; 99285

== ENCOUNTER 2025-03-24 13:37 | Emergency (ER) | payer BC, MEDICAID, SELFPAY ==
[2025-03-24 13:40] VITALS: BP 105/70; PULSE 92; RESP 16; TEMP 36.7; O2SAT 100; BMI 27.6
--- NOTE | 2025-03-24 13:57 | ED_ITS ---
HPI - Abdominal Pain 2 General: Chief Complaint: Abdominal Pain Stated Complaint: abd pain Time Seen by Provider: 03/24/25 13:43 Source: patient Mode of arrival: ambulatory Limitations: no limitations History of Present Illness: Patient is a 30-year-old female presents to ED today with a complaint of abdominal pain beginning yesterday. She states most of her pain at time of presentation to the emergency department is epigastric. She does state pain has been intermittent and seems to jump around her abdomen. She states she had identical symptoms at the end of January and was seen here in the emergency department. She did have CT imaging performed within and was diagnosed with an ovarian cyst. Patient is not having any pelvic pain at this time. She arrives with stable vital signs. He has not had any episodes of emesis or changes in her bowel movements. No fevers. MD elicited complaint: abdominal pain Pertinent past history: none Onset (ago): day(s) (yesterday) Pain Consistency: intermittent Location: Other ( jumps around ) Severity: severe Pain scale (0-10): 8 Radiation: none Migration to: no migration Exacerbating factors: nothing Relieving factors: nothing Associated Symptoms: Denies change in bowel habits, chills, diarrhea, dysuria, fever(s), hematochezia, melena, nausea and vomiting Related Data Date of Last Menstrual Period: 02/15/25 Previous Rx's ?Medication ?Instructions ?Recorded diclofenac sodium 50 mg 50 mg PO BID PRN pain #14 ta bs 02/05/25 tablet,delayed release tramadol 50 mg tablet 50 mg PO Q8H PRN pain #10 ta bs 02/05/25 prednisone 20 mg tablet 40 mg (2 x 20 mg) PO DAILY # 10 tabs 03/12/25 pantoprazole 40 mg tablet,delayed 40 mg PO DAILY 14 da ys #14 tabs 03/24/25 release (Protonix) sucralfate 1 gram tablet (Carafate) 1 g PO TID 2 weeks #42 tabs 03/24/25 Allergies Allergy/AdvReac Type Severity Reaction Status Date / Time Alpha-Gal Allergy Unknown Verified 03/24/25 13:43 ([id number]-5,3-Gala Review of Systems 2 Const: Denies: fever(s), chills, body aches, fatigue or malaise Card: Denies: chest pain Resp: Denies: dyspnea GI: Reports: abdominal pain; Denies: nausea, vomiting, diarrhea, change in bowel habits, hematochezia or melena : Denies: flank pain, difficulty voiding, dysuria, urinary frequency, urinary urgency or urinary hesitancy Musc: Denies: neck pain, back pain, extremity pain, extremity swelling, joint pain, joint swelling or joint redness Skin/Breast: Denies: rash Neuro: Denies: headache(s), numbness in extremities, weakness in extremities, sensory changes or dizziness PFSH ED 2 PFSH: Medical History Bee sting reaction, accidental or unintentional, initial encounter Social History Smoking and tobacco/nicotine status: never used tobacco/nicotine Alcohol intake: never Substance/Drug Use: never Female Reproductive History: Date of last menstrual period: 02/15/25 Physical Exam 2 Const: COMMON NORMALS: no acute distress, average body habitus, patient oriented x3, no limitations, healthy appearing, alert and well nourished G ENERAL APPEARANCE: cooperative ORIENTATION/CONSCIOUSNESS: Yes awake, Yes oriented to person, Yes oriented to place and Yes oriented to time Eye: COMMON NORMALS: no scleral icterus Resp: COMMON NORMALS: normal respiratory effort and clear to auscultation bilaterally AUSCULTATION: clear to auscultation bilaterally Cardio: COMMON NORMALS: regular rate and regular rhythm RATE: regular rate RHYTHM: regular rhythm GI: COMMON NORMALS: Normal to inspection, nondistended, normoactive bowel sounds present, Soft to palpation, No hepatosplenomegaly present and no masses INSPECTION: Yes normal to inspection AUSCULTATION: Yes normoactive bowel sounds PALPATION: Yes Soft to palpation, Yes Tenderness to palpation present (GI) (epigastric ), No Guarding due to palpation present (GI), No Rigid due to palpation and Yes No hepatosplenomegaly present : COMMON NORMALS: Yes no CVA tenderness BLADDER/KIDNEY EXAM: Yes no CVA tenderness Back/Pelvis: COMMON NORMALS: no CVA tenderness Extremity: GENERAL: Yes normal exam except as noted Neuro: BINA COMA SCALE: document GCS findings Bina coma scale eye opening: Spontaneous Bina coma scale verbal response: Orientated Bina coma scale motor response: [place]bey commands [place] coma scale total score: 15 COMMON NORMALS: patient oriented x3, moves all extremities, no focal motor deficits, no sensory deficits noted and gait normal SENSORIUM/ORIENTATION: Yes alert, Yes oriented to person, Yes oriented to place and Yes oriented to time Skin: COMMON NORMALS: no rashes or lesions noted GENERAL SKIN EXAM: no rashes or lesions noted Course 2 Vital Signs: Vital signs: Vital Signs Temperature 98.0 F 03/24/25 13:40 Pulse Rate 96 03/24/25 14:56 Respiratory Rate 16 03/24/25 14:14 Blood Pressure 118/81 03/24/25 14:56 Pulse Oximetry 97 03/24/25 14:56 Oxygen Delivery Me thod Room Air 03/24/25 14:30 MDM - Abdominal Pain Medical Decision Making Patient is a 30-year-old female here for epigastric abdominal pain starting yesterday. She clinically appears in no acute distress although rating her pain at an 8/10. Her vital signs are stable. Her blood work is completely nonactionable. UA is contaminated. She was administered a GI cocktail which brought her pain down to a 1/10. Clinically she has a nonsurgical abdomen. She did undergo CT imaging just a few weeks ago. I do not feel we need to re-image her today. Will place her on a PPI/Carafate over the next 2 weeks and recommend she follow-up with her primary care provider. Return to ED precautions discussed. Medical Records I reviewed the patient's medical records. Lab Data I reviewed the patient's lab results. 03/24/25 14:01 03/24/25 14:01 Labs/Radiology: Laboratory Results WBC 11.66 10^3/uL (3.29-11.43) H 03/24/25 14:01 RBC 4.59 10^6/uL (3.85-5.65) 03/24/25 14:01 Hgb 13.90 g/dL (11.27-16.99) 03/24/25 14:01 Hct 41.9 % (36-47) 03/24/25 14:01 MCV 91.3 fl (85-98) 03/24/25 14:01 MCH 30.3 pg (27-33) 03/24/25 14:01 MCHC 33.2 g/dL (30-55) 03/24/25 14:01 RDW 14.5 % (12.1-15.1) 03/24/25 14:01 Plt Count 324 10^3/cmm (157-399) 03/24/25 14:01 MPV 10.7 fL (7.4-10.4) H 03/24/25 14:01 Neut % (Auto) 48.7 % 03/24/25 14:01 Lymph % (Auto) 41.9 % 03/24/25 14:01 [place] % (Auto) 6.3 % 03/24/25 14:01 Eos % (Auto) 2.3 % 03/24/25 14:01 Baso % (Auto) 0.5 % 03/24/25 14:01 Neut # (Auto) 5.67 10^3/uL (1.8-7.7) 03/24/25 14:01 Lymph # (Auto) 4.9 10^3/uL (0.8-4.8) H 03/24/25 14:01 [place] # (Auto) 0.7 10^3/uL (0.2-0.9) 03/24/25 14:01 Eos # (Auto) 0.3 10^3/uL (0.0-0.8) 03/24/25 14:01 Baso # (Auto) 0.1 10^3/uL (0.0-0.1) 03/24/25 14:01 Nucleated RBC % (auto) 0 % 03/24/25 14:01 Nucleated RBCs # 0.0 /100WBC 03/24/25 14:01 Sodium 139 mmol/L (136-145) 03/24/25 14:01 Potassium 3.7 mmol/L (3.5-5.1) 03/24/25 14:01 Chloride 103 mmol/L (98-107) 03/24/25 14:01 Carbon Dioxide 25 mmol/L (22-29) 03/24/25 14:01 Anion Gap 14.7 (5-19) 03/24/25 14:01 BUN 15 mg/dL (6-20) 03/24/25 14:01 Creatinine 0.7 mg/dL (0.5-0.9) 03/24/25 14:01 GFR Calculation 97.0 mL/min (90-130) 03/24/25 14:01 Glucose 76 mg/dL (65-115) 03/24/25 14:01 Calculated Osmolality 288 mOsm/kg (285-295) 03/24/25 14:01 Calcium 9.4 mg/dL (8.5-10.5) 03/24/25 14:01 Total Bilirubin 0.3 mg/dL (0.15-1.2) 03/24/25 14:01 AST 16 U/L (0-32) 03/24/25 14:01 ALT 21 U/L (0-33) 03/24/25 14:01 Alkaline Phosphatase 78 U/L (35-105) 03/24/25 14:01 Total Protein 7.3 g/dL (6.6-8.7) 03/24/25 14:01 Albumin 4.5 g/dL (3.5-5.2) 03/24/25 14:01 Globulin 2.8 g/dL (1.3-4.6) 03/24/25 14:01 Lipase 25 U/L (13-60) 03/24/25 14:01 HCG, Qual Negative (Negative) 03/24/25 14:01 Urine Color Yellow (Yellow) 03/24/25 13:56 Urine Appearance Clear (CLEAR) 03/24/25 13:56 Urine pH 5.0 (5-7) 03/24/25 13:56 Ur Specific [place] 1.029 (1.005-1.030) 03/24/25 13:56 Urine Protein Negative (Negative) 03/24/25 13:56 Urine Glucose (UA) Negative (Normal) 03/24/25 13:56 Urine Ketones Trace (Negative) 03/24/25 13:56 Urine Blood 1+ (Negative) A 03/24/25 13:56 Urine Nitrate Negative (Negative) 03/24/25 13:56 Urine Bilirubin Negative (Negative) 03/24/25 13:56 Urine Urobilinogen 1.0 mg/dL (Negative) 03/24/25 13:56 Ur Leukocyte Esterase Negative (Negative) 03/24/25 13:56 Urine RBC 6-10 /hpf (0-2) 03/24/25 13:56 Urine WBC 0-5 /hpf (0-5) 03/24/25 13:56 Ur Squamous Epith Cells 11-20 /hpf (0-5) H 03/24/25 13:56 Amorphous Sediment Not Reportable 03/24/25 13:56 Urine Bacteria 3+ /hpf (NONE) H 03/24/25 13:56 Hyaline Casts 2.05 /lpf 03/24/25 13:56 No radiology studies performed this visit Discharge Plan Discharge Patient Disposition: Home Clinical Impression: Epigastric abdominal pain Condition: Stable Prescriptions: New sucralfate [Carafate] 1 gram tablet 1 g PO TID 14 Days Qty: 42 0RF pantoprazole [Protonix] 40 mg tablet,delayed release (DR/EC) 40 mg PO DAILY 14 Days Qty: 14 0RF No Action prednisone 20 mg tablet 40 mg PO DAILY Qty: 10 0RF tramadol 50 mg tablet 50 mg PO Q8H PRN (Reason: pain) Qty: 10 0RF diclofenac sodium 50 mg tablet,delayed release (DR/EC) 50 mg PO BID PRN (Reason: pain) Qty: 14 0RF Discharge Orders: Discharge ED (Routine); Ordered 03/24/25 Ordered By: Leonila Olivas Patient Instructions: Abdominal Pain (ED), Patient Portal & [facility]oor Instructions Print Language: Bulgarian Coding Level of Care Code 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
[2025-03-24 14:03] LABS: Glucose Urine UA Negative (Normal); Nitrate Urine Negative (Negative); Specific Gravity, Urine 1.029 (1.005-1.030)
[2025-03-24 14:06] LABS: Add Urine Microscopic? YES
[2025-03-24 14:14] VITALS: BP 118/81; PULSE 95; RESP 16; O2SAT 98
[2025-03-24 14:14] LABS: Hematocrit 41.9 % (36-47); Hemoglobin 13.90 g/dL (11.27-16.99); Mean Corpuscular HGB Conc 33.2 g/dL (30-55); Mean Corpuscular Hemoglobin 30.3 pg (27-33); Mean Corpuscular Volume 91.3 fl (85-98); Nucleated Red Blood Cells % 0 %; Platelet Count 324 10^3/cmm (157-399); Red Blood Count 4.59 10^6/uL (3.85-5.65); White Blood Count 11.66 10^3/uL (3.29-11.43)
[2025-03-24] MEDS: lidocaine 2% viscous 15 ML, aluminum-mag hydrox-simethicon 30 ML, sucralfate oral liq 1 GM PO (14:17)
[2025-03-24 14:30] VITALS: PULSE 92; O2SAT 99
[2025-03-24 14:35] LABS: Alanine Aminotransferase 21 U/L (0-33); Albumin Level 4.5 g/dL (3.5-5.2); Alkaline Phosphatase 78 U/L (35-105); Anion Gap 14.7 (5-19); Aspartate Amino Transferase 16 U/L (0-32); Blood Urea Nitrogen 15 mg/dL (6-20); Calcium 9.4 mg/dL (8.5-10.5); Carbon Dioxide 25 mmol/L (22-29); Chloride 103 mmol/L (98-107); Creatinine Clr Calc Pharmacy 108.8194; Globulin 2.8 g/dL (1.3-4.6); Glucose 76 mg/dL (65-115); Lipase 25 U/L (13-60); Osmolality Calculated 288 mOsm/kg (285-295); Potassium 3.7 mmol/L (3.5-5.1); Sodium 139 mmol/L (136-145); Total Protein 7.3 g/dL (6.6-8.7)
[2025-03-24 14:36] LABS: HCG, Serum Qual Negative (Negative)
[2025-03-24 14:56] VITALS: BP 118/81; PULSE 96; O2SAT 97
--- OUTSIDE RECORDS SUMMARY | 2025-03-26 10:55 | XMS_ITS | Clinical Summary ---
Author Organization [facility] Address [address] Wheat: Epic [place] [address] Care Team Providers Care Senior Account Executive Name Role Phone Gokul Lara MD Primary Care Provider [phone] Allergies Active Allergy Reactions Criticality Noted Date Comments Alpha-Gal (Rvrpuimim-Osqzk-0,3-Galactose) Abdominal Pain High 06/01/2023 Medications EPINEPHrine (EPIPEN) [...] Encounters Date Type Department Care Team Description 03/25/2025 External Device Data [facility] Provider, Abstract 03/25/2025 External Device Data [facility] AB[facility] Provider, Abstract 03/19/2025 External Device Data [facility] Provider, Abstract 03/03/2025 Telephone [facility] [place] [address] [place] [address] Tess Mirza FNP u/s results/tess 02/28/2025 11:35 AM CDT - 02/28/2025 11:59 PM CDT Hospital Encounter [facility] [place] [address] [place] [address] Tess Mirza FNP Discharge Disposition: Home or Self Care 02/24/2025 11:40 AM CDT Office Visit [facility] [place] [address] [place] [id number] Tess Mirza FNP Ovarian cyst, bilateral (Primary Dx) 01/14/2025 External Device Data [facility] ABSTRACTION Provider, [...] self Jun.20 Hypertension Brother 2 Christian Leal Depression Brother 3 Matthieu Abdalla My uncle he pretty much raised me. Hung his self Jun.20 Colon Cancer Father Matthieu Abdalla Cancer Depression Father Matthieu Abdalla It was my un dre that raised me he hung his self 06/20/2019 Hypertension Maternal Grandmother Shira Abdalla Lung Cancer Maternal Grandmother Shira Abdalla Cance r Skin Cancer Maternal Grandmother Shira Abdalla Cance r Depression Mother Anne Tierney She gets SSI A ND Disablity Hypertension Mother Anne Tierney Breast Cancer Other Ovarian Cancer Other Cancer Paternal Grandmother Shira Abdlala She w as told she had Pneumonia but found out it was cancer anf Relation Name Status Comments Brother 1 Matthieu Abdalla Brother 2 Christian Leal Brother 3 Matthieu Abdalla Alive Father Matthieu Abdalla Alive Maternal Grandmother Shira Abdalla Mother Anne Tierney Alive Other Paternal Grandmother Shira Abdalla Alive Social History Tobacco Use Types Packs/Day Years Used Date Smoking Tobacco: Every Day Cigarettes 0.5 20 Smokeless Tobacco: Never Tobacco Cessation:Ready to Q uit: Not Asked; Counseling Given: Not Answered Alcohol Use Standard Drinks/Week Comments Yes 10 (1 standard drink = 0.6 oz pu re alcohol) Just started drinking Comments No Sex and Gender Information Value Date Recorded Sex Assigned at Not on file Legal Sex Female 12:44 PM 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 LINER RUBBER Gender Identity Not on file Sexual Orientation Straight 08/08/2024 1: 23 PM VALVE LINER RUBBER Last Filed Vital Signs Vital Sign Reading Time Taken Comments Blood Pressure 102/60 02/24/2025 11:28 AM CDT Pulse 102 08/26/2024 2:00 PM VALVE LINER RUBBER Temperature 36.9 C (98.4 F) 08/26/2024 1:23 PM VALVE LINER RUBBER Respiratory Rate 18 08/26/2024 2:00 PM VALVE LINER RUBBER Oxygen Saturation 100% 08/26/2024 2:00 PM VALVE LINER RUBBER Inhaled Oxygen Concentration - - Weight 69.9 kg (154 lb) 02/24/2025 11:28 AM CDT Height 160 cm (5' 3 ) 02/24/2025 11:28 AM CDT Body Mass Index 27.28 02/24/2025 11:28 AM CDT Plan of Treatment Health Maintenance Due Date Last Done Comments HEPATITIS B VACCINES (1 of 3 - 19+ 3-dose series) 2012 HPV/Cotest (21-29) 2014 HPV/Cotest (30-65) 2023 Preventative Visit-Managed Medicaid 03/31/2023 03/30/2022, 12/21/2021 INFLUENZA VACCINE (#1) 2025 05/29/2023, 2021 CERVICAL CANCER SCREENING 03/30/2025 PAP SMEAR 03/30/2025 03/30/2022 DTAP/TDAP/TD VACCINES (5 - T d or Tdap) 09/06/2026 09/06/2016, 07/20/1999, 12/02/1996, Additional history exists HPV VACCINES Completed 09/06/2016, 08/15, 01/19/2009 Medical Devices Implanted Type Area Distribution Center Supervisor Device Identifier Shelf Expiration Date Model / Serial / Lot Hemostatic Surg Powder [id number] - [id number] Implanted:Qty: 1 on 11/23/2021 by Eva Mcdaniel MD at [facility] Hemostatic N/A: Abdomen [employer] [id number] / / Procedures Procedure Name Priority Date/Time Associated Diagnosis Comments US PELVIC TRANSVAGINAL Routine 02/28/2025 12:27 PM CDT Ovarian cyst, bilateral CERV/VAG CYTO AGE BASED SCREEN PAP Routine 03/30/2022 12:03 PM CDT Screening for cervical cancer from Last 3 Months or Most Recently Relevant to Health Maintenance Results * US PELVIC TRANSVAGINAL (02/28/2025 12:27 PM CDT) Anatomical Region Laterality Modality Pelvis Ultrasound 02/28/2025 12:2 7 PM CDT Impressions 03/03/2025 8:06 AM CDT IMPRESSION: No significant sonographic abnormalities in the pelvis. Narrative 03/03/2025 8:06 AM CDT Exam: Pelvic ultrasound Technique: Transvaginal pelvic ultrasound was performed Comparison: Ultrasound dated 05/31/2024 Reason For Exam: Ovarian cysts. FINDINGS: Uterus: Uterus: Uterus measures 3.34 x 4.24 x 7.50 cm. Endometrial thickness measures 3.4 mm. No abnormal uterine masses. Right Ovary: Right ovary measures 2.13 x 2.72 x 3.83 cm with a volume of 11.6 mL. Color flow present within the right ovary. No ovarian masses. Left Ovary: Left ovary measures 2.00 x 3.29 x 4.48 cm with a volume of 15.4 mL. Color flow present within the left ovary. No ovarian masses. Small amount of free fluid in the pelvis. Procedure Note Edmund Bravo MD - 03/03/2025 Exam: Pelvic ultrasound Technique: Transvaginal pelvic ultrasound was performed Comparison: Ultrasound dated 05/31/2024 Reason For Exam: Ovarian cysts. FINDINGS: Uterus: Uterus: Uterus measures 3.34 x 4.24 x 7.50 cm. Endometrial thickness measures 3.4 mm. No abnormal uterine masses. Right Ovary: Right ovary measures 2.13 x 2.72 x 3.83 cm with a volume of 11.6 mL. Color flow present within the right ovary. No ovarian masses. Left Ovary: Left ovary measures 2.00 x 3.29 x 4.48 cm with a volume of 15.4 mL. Color flow present within the left ovary. No ovarian masses. Small amount of free fluid in the pelvis. IMPRESSION: No significant sonographic abnormalities in the pelvis. us Tess Mirza [facility] US ORDERABLES Final Re sult * CERV/VAG CYTO AGE BASED SCREEN PAP (03/30/2022 12:03 PM CDT) COMMENT (PAP): [facility] Fry Comment: This order for age-based cervical cancer and STI screening follows ACOG guidelines(PB 168, 140, RFF248). See individual assays for performing site location. CLINICAL INFORMATION Alex KnightMelyssaAmada daniel Fry Comment:SCREENING HEALTHY LAST MENSTRUAL PERIOD Alex KnightMelyssaAmada daniel Fry Comment:INFORMATION NOT PROV IDED PREV PAP: Alex KnightMelyssaAmada sanchez Ang Comment:INFORMATION NOT PROV IDED PREV BX: Alex KnightMelyssaAmada daniel Fry Comment:INFORMATION NOT PROV IDED SOURCE Alex KnightMelyssaAmada daniel Fry Comment:Endocervix ADEQUACY: Alex EugeneNii Fry Comment: Satisfactory for evaluation. Endocervical/transformation zone component present. Age and/or menstrual status not provided PAP INTERP Alex KnightNii Fry Comment:Negative for intraep ithelial lesion or malignancy. COMMENT (PAP TEST) Q uest EugeneNii Fry Comment: This Pap test has been evaluated with computer assisted technology. RESEARCH NUTRITIONIST: Virgil Fry Comment: MVB, CT(ASCP) CT Screening Location: [place] [address] [address] Roddy Fry Comment: [...] and current clinical information. Test Performed at: [place] [address] [address] [address] Khanh Iniguez Genital SWAB OF ENDOCERVIX / Unknown 03/30/2022 12:03 PM CDT 03/31/2022 11:03 AM CDT Gemma Cazares PLUGGER MAN PATHOLOGY/CYTOLOGY ORDERABLES nal Result [facility] [phone] [place] [address] [address] [phone] from Last 3 Months or Most Recently Relevant to Health Maintenance Insurance BC[employer] [facility] MEDICAID RX INFOCROSSING Medicaid Advance Directives For more information, please contact: [phone] * Full Code (Latest Code Status on File) Date Activated Date Inactivated Comments 11/23/2021 5:01 AM 11/23/2021 12:38 PM Care Teams Senior Account Executive Relationship Specialty Start Date End Date Gokul Lara MD [address] [place] [address] PCP - General Family Practice 04/08/22
--- OUTSIDE RECORDS SUMMARY | 2025-03-26 10:55 | XMS_ITS | Patient Health Record ---
Author Organization [facility] Address [address] [place], [place] [id number] Care Team Providers Care Sealant Mixer Name Role Phone Vance ONEILL, Sesar Primary Care Provider Mac Lane MD, Percy Unavailable [phone] Allergies No Known Allergies Reason For Referral [...] W/U Status Risk Notes Problem Anxiety disorder (641636171) Other specified anxiety disorders (F41.8) Active confirmed Problem Sleep disorder (20475202) Other sleep disorders (G47.8) Active confirmed Problem Cervical spondylosis without myelopathy (548117402) Spondylosis without myelopathy or radiculopathy, cervical region (M47.812) Active confirmed Problem Cervical radiculopathy (94366009) Cervical disc disorder with radiculopathy, unspecified cervical region (M50.10) Active confirmed Problem Cervicalgia (34167141) Cervicalgia (M54.2) Active confirmed Problem Long-term current use of drug therapy (343963260) Other terminal operator (current) drug therapy (Z79.899) Active confirmed Problem Myalgia (78362045) Myalgia of auxiliary muscles, head and neck (M79.12) Active confirmed Plan Of Treatment No Information Insurance Providers Payer Name Payer Address Payer Phone Subscriber Number Group Number Insured Name Patient Relationship to Insured Coverage Start Date Coverage End Date ESTELA MARTINEZ [address] [facility] [address] [place] [id number] Kimberly Abdalla Self - patient is the insured Medical (General) History Medical History History ICD Code Neck pain Low back pain Mid back pain Migraine headaches Left closed nondisplaced fracture of 5th metacarpal Depression Chest wall pain Pyelonephritis Epileptic seizure Costochondritis COVID-19 (10/2020) Surgical History Surgery Date(Month/Year) Tonsillectomy Vaginal episiotomy, scar revision, perfo rmed at [facility] by Dr. Diamond, 11/14/18 Hospitalization History Reason Date(Month/Year) Child , 2012, 2014
--- OUTSIDE RECORDS SUMMARY | 2025-03-26 10:55 | XMS_ITS | Encounter Summary ---
Author Organization [facility] Address [address] [place] [address] Care Team Providers Care English Language Arts Teacher Name Role Phone Gokul Lara MD Primary Care Provider [phone] Encounter Details Date Type Department Care Team (Late st Contact Info) Description 03/19/2025 External Device Data [facility] ABSTRACTION Provider, Abstract NO ADDRESS ON FILE Social History Tobacco Use Types Packs/Day Years Used Date Smoking Tobacco: Every Day Cigarettes 0.5 20 Smokeless Tobacco: Never Alcohol Use Standard Drinks/Week Comments Yes 10 (1 standard drink = 0.6 oz pu re alcohol) Just started drinking Comments No Sex and Gender Information Value Date Recorded Sex Assigned at Not on file Legal Sex Female 12:44 PM LABORATORY OPERATIONS COORDINATOR Gender Identity Not on file Sexual Orientation Straight 08/08/2024 1: 23 PM LABORATORY OPERATIONS COORDINATOR documented as of this encounter Plan of Treatment Not on file documented as of this encounter Visit Diagnoses Not on filedocumented in this encounter Additional Health Concerns Assessment Noted Time PHQ-9 Depression Total Score: 4 05/29/20 23 1:00 PM CDT documented as of this encounter Care Teams English Language Arts Teacher Relationship Specialty Start Date End Date Gokul Lara MD [address] [place] [address] PCP - General Family Practice 04/08/22 documented as of this encounter
== END 2025-03-24 14:58 | disposition home or self-care (01) ==
PROVIDERS: Emergency Provider Physician Assistant
DX: R10.13 Epigastric pain (principal)
CPT/HCPCS: 36415; 80053; 81001; 83690; 84703; 85025; 87086; 99283; J9999